=== PATIENT | male | born 1950 | race Caucasian/White ===

== ENCOUNTER 2017-01-18 13:38 | Inpatient (IN) | payer OTHER ==
[~2017-01-18] VITALS: Ht 188 cm; Wt 89.0 kg
[~2017-01-18 13:38] MED LIST: CPR500 PO; GLC500; LISI20TA; MULT-506; [UNRECOGNIZED DRUG - OTHER]
[2017-01-18] MEDS ORDERED: ALFU10TA30 PO (13:48)
[2017-01-18] MEDS ORDERED: DUTA0.5C PO (13:48)
[2017-01-18] MEDS ORDERED: LISI40TA PO (13:48)
[2017-01-18] MEDS ORDERED: GLC/500 PO (13:48)
[2017-01-18] MEDS ORDERED: AMLO-114 PO (13:48)
[2017-01-18] MEDS ORDERED: METOPROLOL TARTRATE 1 MG/ML VIAL IV STA (13:59)
[2017-01-18] MEDS ORDERED: SODIUM CHLORIDE 0.9% 1000ML 250 ML IV STA (13:59)
[2017-01-18 14:18] LABS: HEMATOCRIT 45.6 % (42-52); MEAN CELL VOLUME 88.7 fL (80-100); MEAN CORPUSCULAR HGB CONC 33.8 g/dl (32-36); MEAN PLATELET VOLUME 10.5 fL (7.4-10.4); PLATELET COUNT 277 K/uL (130-400); RED BLOOD COUNT 5.14 M/uL (4.7-6.1); WHITE BLOOD COUNT 7.73 K/uL (4.8-10.8)
--- NOTE | 2017-01-18 14:25 | DIAGNOSTIC IMAGING REPORT ---
SINGLE VIEW CHEST CLINICAL HISTORY: Atypical chest pain. FINDINGS: 2 AP, portable, upright chest radiographs are obtained. No prior studies are available for comparison at the time of dictation. The examination is degraded by portable technique and patient rotation. The heart is mildly enlarged and there is atherosclerotic calcification of the thoracic aorta. The pulmonary vascular structures noncongested. Emphysema is suggested. There is nonspecific interstitial thickening. No airspace consolidation, large pleural effusion, or pneumothorax is seen. The skeletal structures are osteopenic. Degenerative change is seen throughout the thoracic spine. IMPRESSION: Cardiomegaly and suspect emphysema. There is no acute cardiopulmonary abnormality. Electronically signed by: Ronnie Ribera M.D. 01/18/2017 2:24 PM Dictated Date/Time: 01/18/2017 2:22 PM
[2017-01-18 14:38] LABS: PROTHROMBIN TIME (PATIENT) 10.5 SECONDS (9.0-12.0)
[2017-01-18] MEDS ORDERED: NITROGLYCERIN OINT 2% 1GM PACKET EXT STA (14:39)
[2017-01-18 14:45] LABS: BUN/CREATININE RATIO 14.8 (10-20); CALCIUM 9.2 mg/dl (8.5-10.1); CREATININE 0.82 mg/dl (0.60-1.40); POTASSIUM 3.9 mmol/L (3.5-5.1)
[2017-01-18 14:54] LABS: ALB/GLOB RATIO 1.1 (0.9-2); CKMB/CK RATIO 2.5 (0-3.0)
[2017-01-18] MEDS ORDERED: METOPROLOL TARTRATE 50 MG TAB PO STA (15:29)
[2017-01-18] MEDS ORDERED: MoRPHine SULFATE 2 MG/ML CARP IV PRN (15:30)
[2017-01-18] MEDS ORDERED: ACETAMINOPHEN 325 MG TAB PO PRN (15:30)
[2017-01-18] MEDS ORDERED: ZOLPIDEM TARTRATE 5 MG TAB PO PRN (15:30)
--- NOTE | 2017-01-18 15:34 | EMERGENCY ROOM VISIT NOTE ---
History Report prepared by Adriana: Ke Carmona Under the Supervision of: Dr. Ronnie Howard M.D. First contact with patient: 13:53 Chief Complaint: CHEST PAIN Stated Complaint: CHEST PAIN AND L SHOULDER PAIN History of Present Illness The patient is a 66 year old male who presents to the Emergency Room with complaints of an episode of chest pain occurring two hours ago. He describes his pain as a "pressure" and states that it radiated into his left shoulder. He states that he was sitting in a chair when his pain began. The patient states that he experienced a "cold-sweat" after his pain resolved. He estimates that his pain lasted for about 30 minutes. He denies any SOB, or nausea. The patient has a history of diabetes, and hypertension. He has no known cardiac history. He denies any recent changes to his medications, and states that he has been taking them as usual. The patient denies any recent prolonged travel, or history of blood clots. He took 4 baby aspirin prior to arrival. Source of History: patient Onset: 2 hours ago Position: chest Symptom Intensity: 7/10 Quality: pressure Timing: other (episode) Associated Symptoms: No SOB, No nausea Note: Additional symptoms: "cold sweat" after his pain resolved and pain radiating into his left shoulder. Review of Systems See HPI for pertinent positives & negatives. A total of 10 systems reviewed and were otherwise negative. Past Medical & Surgical Medical Problems: (1) ACS (acute coronary syndrome) (2) Diabetes (3) HTN (hypertension) Family History No pertinent family history stated. Social History Smoking Status: Current Every Day Smoker Housing Status: lives with family Current/Historical Medications Scheduled Alfuzosin Hcl (Uroxatral), 10 MG PO DAILY Amlodipine (Norvasc), 10 MG PO DAILY Dutasteride (Avodart), 0.5 MG PO DAILY Lisinopril (Zestril), 40 MG PO DAILY Metformin Hcl (Glucophage), 500 MG PO BID Allergies Coded Allergies: No Known Allergies (Unverified , 01/18/17) Physical Exam Vital Signs Date Time Temp Pulse Resp B/P (MAP) Pulse Ox O2 Delivery O2 Flow Rate FiO2 01/18/17 15:12 75 18 125/91 98 Room Air 01/18/17 14:30 110 147/89 01/18/17 14:17 96 Room Air 01/18/17 13:55 105 01/18/17 13:40 36.6 129 20 159/100 96 Room Air Physical Exam GENERAL: Patient is in no acute distress. HEENT: No acute trauma, normocephalic atraumatic, mucous membranes moist, no nasal congestion, no scleral icterus. NECK: No stridor, no adenopathy, no meningismus, trachea is midline. LUNGS: Clear to auscultation bilaterally, no wheeze, no rhonchi, breath sounds equal. HEART: Without murmurs gallops or rubs, Tachycardic with a regular rhythm. ABDOMEN: Soft, nontender, bowel sounds positive, no hernias, no peritonitis. EXTREMITIES: No cyanosis or edema, full range of motion of all the joints without pain or difficulty, no signs for acute trauma. NEUROLOGIC: Oriented x 3, no acute motor or sensory deficits, no focal weakness. SKIN: No rash, no jaundice, no diaphoresis. Medical Decision & Procedures ER Provider Diagnostic Interpretation: X-ray results as stated below per interpretation by me and the radiologist: SINGLE VIEW CHEST FINDINGS: 2 AP, portable, upright chest radiographs are obtained. No prior studies are available for comparison at the time of dictation. The examination is degraded by portable technique and patient rotation. The heart is mildly enlarged and there is atherosclerotic calcification of the thoracic aorta. The pulmonary vascular structures noncongested. Emphysema is suggested. There is nonspecific interstitial thickening. No airspace consolidation, large pleural effusion, or pneumothorax is seen. The skeletal structures are osteopenic. Degenerative change is seen throughout the thoracic spine. IMPRESSION: Cardiomegaly and suspect emphysema. There is no acute cardiopulmonary abnormality. Electronically signed by: Ronnie Ribera M.D. Laboratory Results 01/18/17 13:58 01/18/17 13:58 Test 01/18/17 13:58 01/18/17 15:31 Red Blood Count 5.14 M/uL (4.7-6.1) Mean Corpuscular Volume 88.7 fL (80-100) Mean Corpuscular Hemoglobin 30.0 pg (25-34) Mean Corpuscular Hemoglobin Concent 33.8 g/dl (32-36) RDW Standard Deviation 43.2 fL (36.4-46.3) RDW Coefficient of Variation 13.2 % (11.5-14.5) Mean Platelet Volume 10.5 fL (7.4-10.4) Prothrombin Time 10.5 SECONDS (9.0-12.0) Prothromb Time International Ratio 1.0 (0.9-1.1) Activated Partial Thromboplast Time 26.1 SECONDS (21.0-31.0) Partial Thromboplastin Ratio 1.0 Anion Gap 9.0 mmol/L (3-11) Est Creatinine Clear Calc Drug Dose 105.9 ml/min Estimated GFR () 108.3 Estimated GFR (Non- 93.5 BUN/Creatinine Ratio 14.8 (10-20) Calcium Level 9.2 mg/dl (8.5-10.1) Total Bilirubin 0.7 mg/dl (0.2-1) Aspartate Amino Transf (AST/SGOT) 10 U/L (15-37) Alanine Aminotransferase (ALT/SGPT) 28 U/L (12-78) Alkaline Phosphatase 105 U/L (45-117) Total Protein 7.4 gm/dl (6.4-8.2) Albumin 3.9 gm/dl (3.4-5.0) Globulin 3.5 gm/dl (2.5-4.0) Albumin/Globulin Ratio 1.1 (0.9-2) Creatine Kinase MB Ratio (0-3.0) Laboratory results reviewed by me. Medications Administered Medications (Trade) Dose Ordered Sig/Dylan Route Start Time Stop Time Status Last Admin Dose Admin Sodium Chloride 250 ml @ 999 mls/hr Q16M STAT IV 01/18/17 13:59 01/18/17 14:14 DC 01/18/17 14:31 999 MLS/HR Metoprolol Tartrate (Lopressor Iv) 15 mg NOW STAT IV 01/18/17 13:59 01/18/17 14:01 DC 01/18/17 14:30 5 MG Nitroglycerin (Nitroglycerin 2% Oint) 1 inch NOW STAT EXT 01/18/17 14:39 01/18/17 14:40 DC 01/18/17 15:12 1 INCH ECG Indication: chest pain Rate (beats per minute): 112 Rhythm: sinus tachycardia Findings: no acute ischemic change, other (Non-specific ST change) ED Course 1354: The patient was evaluated in room A4B. A complete history and physical exam was performed. 1359: Ordered Lopressor 5 mg IV, Sodium Chloride 250 ml @ 999 mls/hr IV. 1439: Ordered Nitroglycerin 2% Oint 1 inch EXT. 1505: Reevaluated the patient. Discussed results and discharge instructions: he verbalized understanding and agreement. The patient is ready for discharge. Medical Decision The patient is a 66 year old male who presents to the ED with complaints of chest pain. Differential diagnoses considered include angina, AR, dysrhythmia, PE, aortic dissection, pneumothorax, pneumonia, and anemia. There is no leukocytosis or concerning anemia. No significant electrolyte abnormality, kidney failure or hepatitis. There is no coagulopathy. EKG shows a sinus tachycardia, no acute ischemia. Cardiac enzyme testing times one does show a mild elevation to the troponin-this is consistent with cardiac injury or strain. Chest film shows no mediastinal widening, pneumonia or pneumothorax. The patient presents hypertensive, tachycardic. He had chest pain earlier which sounded anginal. The patient was given Lopressor IV, 5 mg. He received nitroglycerin paste. As he had already taken aspirin, no further aspirin was given. The patient is in need of a hospital stay. I did talk with the patient and case management. The on-call hospitalist was consulted. Further cardiac workup is warranted. Consults Time Called: 1454 Consulting Physician: Dr. Kumar -[facility] – [place], [place] Returned Call: 1502 Discussed the patient's case. The patient will be evaluated for further management. Impression Primary Impression: Precordial chest pain Additional Impression: Elevated troponin Scribe Attestation The scribe's documentation has been prepared under my direction and personally reviewed by me in its entirety. I confirm that the note above accurately reflects all work, treatment, procedures, and medical decision making performed by me. Departure Information Dispostion Being Evaluated By Hospitalist Referrals Jr Bergeron M.D. (PCP) Patient Instructions My [facility] Problem Qualifiers
[2017-01-18] MEDS ORDERED: ONDANSETRON INJ 2 MG/ML 2 ML VIAL IV PRN (15:45)
[2017-01-18 17:05] LABS: CKMB/CK RATIO 7.3 (0-3.0)
--- NOTE | 2017-01-18 17:30 | History and Physical ---
History & Physical Date & Time of Service: Jan 18, 2017 at 17:28 Chief Complaint: Chest Pain And L Shoulder Pain Primary Care Physician: Jr Bergeron M.D. History of Present Illness Source: patient The patient is a 66-year-old male who developed precordial chest pain with radiation to left shoulder and arm about 2 hours prior to arrival. He reports that the pain lasted for about 30 minutes, and then he developed a cold sweat afterwards, but did not have shortness of breath or nausea. Patient has history of diabetes mellitus, hypertension, tobacco use, family history is a male over the age 45. He did take 4 baby aspirin prior to arrival and feels that that may have helped resolve the pain. He has not had a previous occurrence of this type pain before. He has not had a change in his usual physical activities, sleep patterns, or oral intake. Past Medical/Surgical History Medical Problems: (1) Diabetes Status: Chronic (2) HTN (hypertension) Status: Chronic Family History Noncontributory Social History Smoking Status: Current Every Day Smoker Smokeless Tobacco Use: No Alcohol Use: none Drug Use: none Occupational Status: employed Immunizations History of Influenza Vaccine: Unknown History of Tetanus Vaccine?: Unknown History of Pneumococcal: Unknown History of Hepatitis B Vaccine: Unknown Multi-Drug Resistant Organisms History of MDRO: No Allergies Coded Allergies: No Known Allergies (Unverified , 01/18/17) Home Medications Scheduled Alfuzosin Hcl (Uroxatral), 10 MG PO DAILY Amlodipine (Norvasc), 10 MG PO DAILY Dutasteride (Avodart), 0.5 MG PO DAILY Lisinopril (Zestril), 40 MG PO DAILY Metformin Hcl (Glucophage), 500 MG PO BID Review of Systems The patient denies palpitations, shortness of breath, cough, lower extremity swelling, sore throat, fevers, chills, sweats, weight change, fatigue, nausea, vomiting, abdominal pain, pelvic pain, blood in urine or stool, dysuria, urinary frequency or urgency, lightheadedness, dizziness, headache, memory loss , rash, abnormal bruising or bleeding, imbalance, focal or generalized weakness , numbness or tingling in arms or legs, arthralgias or myalgias, back or neck pain, night sweats, or allergy symptoms. The review of systems is otherwise negative other than for that already noted above, and at least 10 systems have been reviewed. Physical Exam Vital Signs Date Time Temp Pulse Resp B/P (MAP) Pulse Ox O2 Delivery O2 Flow Rate FiO2 01/18/17 15:12 75 18 125/91 98 Room Air 01/18/17 14:30 110 147/89 01/18/17 14:17 96 Room Air 01/18/17 13:55 105 01/18/17 13:40 36.6 129 20 159/100 96 Room Air The patient is awake, well-developed and adequately nourished, alert and oriented 3, normocephalic and atraumatic, lying in bed and in no acute distress. HEENT--PERRL, EOMI, mucous membranes and oropharynx normal. Neck--supple, no JVD or bruits, thyroid normal, trachea midline, no adenopathy. Heart--normal S1 and S2, no extra beats, no murmurs, rubs or gallops. Lungs--clear bilaterally, but decreased breath sounds throughout, no respiratory distress, no accessory muscle use. Abdomen--normal bowel sounds and soft, nontender and nondistended, no hernias or masses, no organomegaly. Extremities--no cyanosis, clubbing or edema. There are good distal pulses b/l. Dermatologic--normal skin turgor, normal color, warm and dry, no abnormal lymph nodes, no rash. Neurologic--cranial nerves II through XII grossly intact, motor and sensory examination normal. Rheumatologic--normal range of motion, nontender, muscles and joints. Psychiatric--normal affect. Diagnostics Laboratory Results Results Past 24 Hours Test 01/18/17 13:58 01/18/17 16:20 Range/Units White Blood Count 7.73 4.8-10.8 K/uL Red Blood Count 5.14 4.7-6.1 M/uL Hemoglobin 15.4 14.0-18.0 g/dL Hematocrit 45.6 42-52 % Mean Corpuscular Volume 88.7 80-100 fL Mean Corpuscular Hemoglobin 30.0 25-34 pg Mean Corpuscular Hemoglobin Concent 33.8 32-36 g/dl RDW Standard Deviation 43.2 36.4-46.3 fL RDW Coefficient of Variation 13.2 11.5-14.5 % Platelet Count 277 130-400 K/uL Mean Platelet Volume 10.5 7.4-10.4 fL Prothrombin Time 10.5 9.0-12.0 SECONDS Prothromb Time International Ratio 1.0 0.9-1.1 Activated Partial Thromboplast Time 26.1 21.0-31.0 SECONDS Partial Thromboplastin Ratio 1.0 Sodium Level 138 136-145 mmol/L Potassium Level 3.9 3.5-5.1 mmol/L Chloride Level 101 98-107 mmol/L Carbon Dioxide Level 28 21-32 mmol/L Anion Gap 9.0 3-11 mmol/L Blood Urea Nitrogen 12 7-18 mg/dl Creatinine 0.82 0.60-1.40 mg/dl Est Creatinine Clear Calc Drug Dose 105.9 ml/min Estimated GFR () 108.3 Estimated GFR (Non- 93.5 BUN/Creatinine Ratio 14.8 10-20 Random Glucose 247 70-99 mg/dl Calcium Level 9.2 8.5-10.1 mg/dl Total Bilirubin 0.7 0.2-1 mg/dl Aspartate Amino Transf (AST/SGOT) 10 15-37 U/L Alanine Aminotransferase (ALT/SGPT) 28 12-78 U/L Alkaline Phosphatase 105 45-117 U/L Total Creatine Kinase 52 99 39-308 U/L Creatine Kinase MB 1.3 7.2 0.5-3.6 ng/ml Creatine Kinase MB Ratio 2.5 7.3 0-3.0 Troponin I 0.312 1.920 0-0.045 ng/ml Total Protein 7.4 6.4-8.2 gm/dl Albumin 3.9 3.4-5.0 gm/dl Globulin 3.5 2.5-4.0 gm/dl Albumin/Globulin Ratio 1.1 0.9-2 Diagnostic Radiology Patient Name: BARBARA WISE Unit Number: [id number] Dictated: 01/18/171421 Transcribed: 01/18/171421 EV Printed Date/Time: [~ rep prt dt]/[~ rep prt tm] [~ rep ct labl] - [~ rep ct ivnm] [facility] [place] [address] Dictated: 01/18/171421 Transcribed: 01/18/171421 EV Printed Date/Time: [~ rep prt dt]/[~ rep prt tm] [~ rep ct labl] - [~ rep ct ivnm] SINGLE VIEW CHEST CLINICAL HISTORY: Atypical chest pain. FINDINGS: 2 AP, portable, upright chest radiographs are obtained. No prior studies are available for comparison at the time of dictation. The examination is degraded by portable technique and patient rotation. The heart is mildly enlarged and there is atherosclerotic calcification of the thoracic aorta. The pulmonary vascular structures noncongested. Emphysema is suggested. There is nonspecific interstitial thickening. No airspace consolidation, large pleural effusion, or pneumothorax is seen. The skeletal structures are osteopenic. Degenerative change is seen throughout the thoracic spine. IMPRESSION: Cardiomegaly and suspect emphysema. There is no acute cardiopulmonary abnormality. Electronically signed by: Ronnie Ribera M.D. 01/18/2017 2:24 PM Dictated Date/Time: 01/18/2017 2:22 PM The status of this report is Signed. Draft = Not yet reviewed or approved by Radiologist. Signed = Reviewed and approved by Radiologist. <AttendingPhy></AttendingPhy> <FamilyPhy>Jr Bergeron M.D.</FamilyPhy> < PrimaryPhy>Jr Bergeron M.D.</PrimaryPhy> <UnitNumber>[id number]</UnitNumber > <VisitNumber>[id number]</VisitNumber> <PatientName>BARBARA WISE</ PatientName> <DateOfBirth>1950</DateOfBirth> <Location>[facility]</Location> < ServiceDate>01/18/17</ServiceDate> <MNE>ESINDI</MNE> <OrderingPhy>Ronnie Howard M.D.</OrderingPhy> <OrderingPhyMNE>f rep ord dr mae</OrderingPhyMNE> < DictatingPhyMNE>f rep dict dr mae</DictatingPhyMNE> <CCListMNE>f rep ct jourdane</ CCListMNE> <AdmittingPhyMNE>f pt admit dr mae</AdmittingPhyMNE> <AttendingPhyMNE >f pt attend dr mae</AttendingPhyMNE> <ConsultingPhyMNE>f pt consult dr mae</ConsultingPhyMNE> <FamilyPhyMNE>f pt fam dr mae</FamilyPhyMNE> <OtherPhyMNE>f pt other dr mae</OtherPhyMNE> < PrimaryPhyMNE>f pt prim care dr mae</PrimaryPhyMNE> <ReferringPhyMNE>f pt referring dr mae</ReferringPhyMNE> EKG EKG shows sinus tachycardia 112 bpm, with nonspecific ST changes. Impression Assessment and Plan Acute coronary syndrome with elevated troponin and nonspecific EKG changes-- patient's multiple risk factors including hypertension, diabetes mellitus, tobacco use, male greater than 45. He'll be admitted to the telemetry unit for serial cardiac enzymes, cardiac rhythm monitoring and a 2-D echocardiogram with Dopplers. We'll start metoprolol tartrate 50 mg by mouth now and 50 mg by mouth twice a day, aspirin 81 mg by mouth every morning,when his speech or chest wall every 6 hours, and heparin drip IV standard dose without. Hold amlodipine 10 mg by mouth daily and continue lisinopril 40 mg by mouth daily. We'll consult cardiology. Diabetes mellitus--hold metformin 500 mg by mouth twice a day. Place on Accu- Cheks before meals and at bedtime with NovoLog coverage per scale. BPH--hold the alpha-sarmad Uroxatral in the event that nitroglycerin needs be used, and continue dutasteride 0.5 mg by mouth daily. Level of Care Telemetry Advanced Directives Existing Living Will: No Existing Power of Wharf Laborer: No Existing Health Care Proxy: No Resuscitation Status FULL RESUSCITATION VTE Prophylaxis VTE Risk Assessment Done? Y/N: Yes Risk Level: Moderate Given or contraindicated: Other Anticoagulation (IV heparin)
[2017-01-18] MEDS ORDERED: GLUCOSE 40% GEL 15 GM TUBE PO PRN (17:45)
[2017-01-18] MEDS ORDERED: DEXTROSE 50% 50 ML SYR IV PRN (17:45)
[2017-01-18] MEDS ORDERED: GLUCOSE 10 TABS/TUBE PO PRN (17:45)
[2017-01-18] MEDS ORDERED: GLUCAGON FOR INJ 1 MG VIAL SQ PRN (17:45)
[2017-01-18 17:55] VITALS: O2SAT 98; Ht 188 cm; Wt 89.0 kg
[2017-01-18 18:15] VITALS: BP 165/87; PULSE 84; TEMP 36.6; O2SAT 95
[2017-01-18 19:25] VITALS: BP 147/79; PULSE 93; TEMP 36.7; O2SAT 96
[2017-01-18] MEDS: NSS + 20MEQ KCL 1000ML 1,000 ML IV SCH (19:26)
[2017-01-18 20:00] VITALS: O2SAT 95
[2017-01-18] MEDS: HEPARIN 25,000 UNIT/500ML D5W 500 ML IV PRN (20:19)
[2017-01-18 21:25] VITALS: BP 132/81; PULSE 63
[2017-01-18] MEDS: INSULIN ASPART 100 UNITS/ML 3 ML PEN SC SCH (21:28)
[2017-01-18] MEDS: METOPROLOL TARTRATE 50 MG TAB PO SCH (21:28)
[2017-01-18] MEDS: NITROGLYCERIN OINT 2% 1GM PACKET EXT SCH (21:34)
[2017-01-18] MEDS: AVODART-ORDER AWAITING ACTION SCH (22:46)
[2017-01-18 23:20] VITALS: BP 142/72; PULSE 72; TEMP 36.8; O2SAT 98
[2017-01-18 23:52] LABS: CKMB/CK RATIO 9.7 (0-3.0)
[2017-01-19] VITALS (12 sets, daily range): BP systolic 123–144; BP diastolic 66–82; PULSE 54–76; TEMP 36.4–36.8; O2SAT 94–98
[2017-01-19 02:24] LABS: PARTIAL THROMBOPLASTIN RATIO 1.5
[2017-01-19] MEDS ORDERED: HEPARIN IV BOLUS 7,000 UNIT in SYRINGE 0 ML IV ONE (02:45)
[2017-01-19] MEDS: HEPARIN 25,000 UNIT/500ML D5W 500 ML IV PRN ×3 (02:47→12:35)
[2017-01-19] MEDS: NITROGLYCERIN OINT 2% 1GM PACKET EXT SCH ×4 (03:49→21:30)
[2017-01-19] MEDS: NSS + 20MEQ KCL 1000ML 1,000 ML IV SCH ×2 (03:50→16:11)
[2017-01-19] MEDS: AVODART-ORDER AWAITING ACTION SCH ×3 (07:16→22:41)
[2017-01-19] MEDS: ASPIRIN 81 MG CHEW PO SCH (07:38)
[2017-01-19] MEDS: LISINOPRIL 40 MG TAB PO SCH (07:39)
[2017-01-19] MEDS: INSULIN ASPART 100 UNITS/ML 3 ML PEN SC SCH ×4 (08:29→21:32)
[2017-01-19] MEDS: METOPROLOL TARTRATE 50 MG TAB PO SCH (08:36)
[2017-01-19 08:44] LABS: BASO % 0.4 %; BASO ABS # 0.03 K/uL (0-0.2); COMPLETE YES; EOS % 1.6 %; HEMATOCRIT 41.9 % (42-52); IG% 0.2 %; LYMPH % 20.4 %; LYMPH ABS # 1.74 K/uL (1.2-3.4); MEAN CELL VOLUME 88.2 fL (80-100); MEAN CORPUSCULAR HEMOGLOBIN 28.8 pg (25-34); MEAN CORPUSCULAR HGB CONC 32.7 g/dl (32-36); MEAN PLATELET VOLUME 10.2 fL (7.4-10.4); NEUT % 70.4 %; PLATELET COUNT 275 K/uL (130-400); RED BLOOD COUNT 4.75 M/uL (4.7-6.1); WHITE BLOOD COUNT 8.55 K/uL (4.8-10.8)
[2017-01-19 09:02] LABS: BUN/CREATININE RATIO 16.5 (10-20); CREATININE 0.82 mg/dl (0.60-1.40)
[2017-01-19 09:06] LABS: PARTIAL THROMBOPLASTIN RATIO 3.2
[2017-01-19 09:12] LABS: CKMB/CK RATIO 8.5 (0-3.0)
[2017-01-19] MEDS ORDERED: PERFLUTREN LIPID MICROSPHERE (DEFINITY) IV ONE (09:47)
--- NOTE | 2017-01-19 11:04 | Cardiology Consultation ---
Cardiology Consultation Date of Consultation: Jan 19, 2017. Requesting Physician: Dr. Kumar Attending Physician: Dr. Nevarez Reason for Consultation: Acute Coronary Syndrome/NSTEMI Pt evaluation today including: conversation w/ patient, physical exam, chart review, lab review, review of studies, review of inpatient medication list, conversation w/ attending (Dr. Nevarez notified of recommended procedure) History of Present Illness Mr. Meyer is a pleasant 66-year-old gentleman with a history significant for diabetes, tobacco abuse, and hypertension. He was admitted to [facility] on 2016 with angina, concerning for acute coronary syndrome. At approximately noontime yesterday, he developed left-sided chest discomfort described as a tightness which radiated to his left arm. He had diaphoresis but no shortness of breath. This occurred while sitting. It lasted for approximately 45 minutes before spontaneously resolving. He did take aspirin 81 mg x4. He did not require nitroglycerin by the timing of to the emergency department. Initial ECG was abnormal with nonspecific T-wave abnormality and very slight ST elevation is in the anterolateral leads cath. Repeat ECG overnight demonstrated sinus bradycardia with anterior T-wave inversion. His initial troponin was 0.312 and it continued to climb overnight. He has not had any further chest discomfort. He is not sure if he had any exertional chest discomfort over the preceding days or weeks. He does not complain and dyspnea with exertion. He denies syncope, near-syncope, palpitations, orthopnea, PND, or edema. He denies bleeding such as melena, hematochezia, or hematuria. Hospitalist service had placed him on a heparin drip. He is taking aspirin. He did eat a small breakfast first thing this morning but was done by 8:00 AM. Review of systems: As above in review of systems otherwise unremarkable. Past Medical/Surgical History (1) BPH (benign prostatic hyperplasia) (2) Diabetes (3) HTN (hypertension) Family History No known premature CAD. Social History Smoking Status: Current Every Day Smoker History of Alcohol Use: No Smokes 1 pack per day but has smoked as much as 2 packs per day. He estimates smoking for at least 30-40 years. No alcohol or drugs. He is not . 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 Her name is Elisabeth Vivar. No children. He enjoys working a [employer] shop for fun. He is unaccompanied today. All Other Systems: Reviewed and Negative Allergies Coded Allergies: No Known Allergies (Unverified , 01/18/17) Medications Current Inpatient Medications Medications (Trade) Dose Ordered Sig/Dylan Route Start Time Stop Time Status Last Admin Dose Admin Acetaminophen (Tylenol Tab) 650 mg Q4H PRN PO 01/18/17 15:30 02/17/17 15:29 Zolpidem Tartrate (Ambien Tab) 5 mg HSZ PRN PO 01/18/17 15:30 02/17/17 15:29 Nitroglycerin (Nitroglycerin 2% Oint) 1 inch Q6H EXT 01/18/17 22:00 02/17/17 21:59 01/19/17 03:49 1 INCH Morphine Sulfate (MoRPHine SULFATE INJ) 2 mg Q30M PRN IV 01/18/17 15:30 02/01/17 15:29 Lisinopril (Zestril Tab) 40 mg DAILY PO 01/19/17 09:00 02/18/17 08:59 01/19/17 07:39 40 MG Miscellaneous Information (Order Awaiting Action) 1 ea QS N/A 01/19/17 00:00 02/18/17 00:00 Metoprolol Tartrate (Lopressor Tab) 50 mg BID PO 01/18/17 21:00 02/17/17 20:59 01/19/17 08:36 50 MG Aspirin (Aspirin Chew) 81 mg QAM PO 01/19/17 09:00 02/18/17 08:59 01/19/17 07:38 81 MG Ondansetron HCl (Zofran Inj) 4 mg Q6H PRN IV 01/18/17 15:45 02/17/17 15:44 Potassium Chloride/Sodium Chloride 1,000 ml @ 100 mls/hr Q10H IV 01/18/17 18:45 02/17/17 15:30 01/19/17 03:50 100 MLS/HR Heparin Sodium/ Dextrose 500 ml @ 34 mls/hr [id number] PRN IV 01/18/17 16:30 02/17/17 16:29 01/19/17 09:28 37 MLS/HR Insulin Aspart (novoLOG ASPART) SLIDING SCALE If C... ACHS SC 01/18/17 21:00 02/17/17 20:59 01/19/17 08:29 7 UNITS Glucose (Glucose 40% Gel) UD PRN PO 01/18/17 17:45 02/17/17 17:44 Glucose (Glucose Chew Tab) 1 tabs UD PRN PO 01/18/17 17:45 02/17/17 17:44 Dextrose (Dextrose 50% 50ML Syringe) 50 ml UD PRN IV 01/18/17 17:45 02/17/17 17:44 Glucagon (Glucagon Inj) 1 mg UD PRN SQ 01/18/17 17:45 02/17/17 17:44 Physical Exam Vital Signs Past 12 Hours Date Time Temp Pulse Resp B/P (MAP) Pulse Ox O2 Delivery O2 Flow Rate FiO2 01/19/17 08:00 Room Air 01/19/17 07:27 36.4 66 17 141/82 (101) 94 Room Air 01/19/17 04:06 36.8 57 18 134/72 (92) 94 Room Air 01/19/17 04:00 Room Air 01/19/17 00:00 Room Air 01/18/17 23:20 36.8 72 18 142/72 (95) 98 Room Air Gen.: No acute distress. Alert and oriented. HEENT: Anicteric sclera. Neck: No JVD. No bruits. Normal carotid upstrokes bilaterally. Cardiac: PMI was nondisplaced. No ventricular heave. Regular rate and rhythm. Normal S1-S2. No murmurs, rubs, or gallops. Pulmonary: Clear to auscultation bilaterally without wheezes, rales, or rhonchi. Abdomen: Soft, nontender, nondistended, with normoactive bowel sounds. No bruits noted. Extremities: 2+ radial pulses bilaterally; Allens's ok. 2+ femoral pulses bilaterally; no bruit. 2+ posterior tibialis pulses bilaterally. No edema or cyanosis. Psychiatric: Affect appears appropriate. Data Laboratory Results: Last 24 Hours Test 01/18/17 13:58 01/18/17 16:20 01/18/17 20:15 01/18/17 23:10 White Blood Count 7.73 K/uL Red Blood Count 5.14 M/uL Hemoglobin 15.4 g/dL Hematocrit 45.6 % Mean Corpuscular Volume 88.7 fL Mean Corpuscular Hemoglobin 30.0 pg Mean Corpuscular Hemoglobin Concent 33.8 g/dl RDW Standard Deviation 43.2 fL RDW Coefficient of Variation 13.2 % Platelet Count 277 K/uL Mean Platelet Volume 10.5 fL Prothrombin Time 10.5 SECONDS Prothromb Time International Ratio 1.0 Activated Partial Thromboplast Time 26.1 SECONDS Partial Thromboplastin Ratio 1.0 Sodium Level 138 mmol/L Potassium Level 3.9 mmol/L Chloride Level 101 mmol/L Carbon Dioxide Level 28 mmol/L Anion Gap 9.0 mmol/L Blood Urea Nitrogen 12 mg/dl Creatinine 0.82 mg/dl Est Creatinine Clear Calc Drug Dose 105.9 ml/min Estimated GFR () 108.3 Estimated GFR (Non- 93.5 BUN/Creatinine Ratio 14.8 Random Glucose 247 mg/dl Calcium Level 9.2 mg/dl Total Bilirubin 0.7 mg/dl Aspartate Amino Transf (AST/SGOT) 10 U/L Alanine Aminotransferase (ALT/SGPT) 28 U/L Alkaline Phosphatase 105 U/L Total Creatine Kinase 52 U/L 99 U/L 264 U/L Creatine Kinase MB 1.3 ng/ml 7.2 ng/ml 25.6 ng/ml Creatine Kinase MB Ratio 2.5 7.3 9.7 Troponin I 0.312 ng/ml 1.920 ng/ml 19.600 ng/ml Total Protein 7.4 gm/dl Albumin 3.9 gm/dl Globulin 3.5 gm/dl Albumin/Globulin Ratio 1.1 Bedside Glucose 263 mg/dl Test 01/19/17 02:04 01/19/17 07:41 01/19/17 08:31 01/19/17 10:31 Activated Partial Thromboplast Time 38.6 SECONDS 82.8 SECONDS Partial Thromboplastin Ratio 1.5 3.2 Bedside Glucose 188 mg/dl White Blood Count 8.55 K/uL Red Blood Count 4.75 M/uL Hemoglobin 13.7 g/dL Hematocrit 41.9 % Mean Corpuscular Volume 88.2 fL Mean Corpuscular Hemoglobin 28.8 pg Mean Corpuscular Hemoglobin Concent 32.7 g/dl Platelet Count 275 K/uL Mean Platelet Volume 10.2 fL Neutrophils (%) (Auto) 70.4 % Lymphocytes (%) (Auto) 20.4 % Monocytes (%) (Auto) 7.0 % Eosinophils (%) (Auto) 1.6 % Basophils (%) (Auto) 0.4 % Neutrophils # (Auto) 6.02 K/uL Lymphocytes # (Auto) 1.74 K/uL Monocytes # (Auto) 0.60 K/uL Eosinophils # (Auto) 0.14 K/uL Basophils # (Auto) 0.03 K/uL RDW Standard Deviation 43.7 fL RDW Coefficient of Variation 13.4 % Immature Granulocyte % (Auto) 0.2 % Immature Granulocyte # (Auto) 0.02 K/uL Prothrombin Time 11.0 SECONDS Prothromb Time International Ratio 1.0 Sodium Level 140 mmol/L Potassium Level 4.0 mmol/L Chloride Level 106 mmol/L Carbon Dioxide Level 26 mmol/L Anion Gap 8.0 mmol/L Blood Urea Nitrogen 14 mg/dl Creatinine 0.82 mg/dl Est Creatinine Clear Calc Drug Dose 105.9 ml/min Estimated GFR () 108.3 Estimated GFR (Non- 93.5 BUN/Creatinine Ratio 16.5 Random Glucose 246 mg/dl Calcium Level 9.0 mg/dl Magnesium Level 2.0 mg/dl Total Bilirubin 0.8 mg/dl Direct Bilirubin 0.3 mg/dl Aspartate Amino Transf (AST/SGOT) 49 U/L Alanine Aminotransferase (ALT/SGPT) 27 U/L Alkaline Phosphatase 91 U/L Total Creatine Kinase 224 U/L Creatine Kinase MB 19.1 ng/ml Creatine Kinase MB Ratio 8.5 Troponin I 25.800 ng/ml Total Protein 6.7 gm/dl Albumin 3.4 gm/dl Imaging: Chest x-ray images personally reviewed. No obvious infiltrate. Radiology has interpreted as possible emphysema without acute cardiopulmonary abnormality. ECGs personally reviewed as noted above and also: ECG 01/19/17 7:10 AM: NSR at 66 bpm. Anterior T wave inversion. Inferior T Wave inversion. Telemetry reviewed: (personally reviewed) sinus rhythm with up to 7 bt run of VT. Echo preliminary review 01/19/17 (images personally reviewed): LV systolic function overall appears low normal on limited review. Apical wall motion abnormality. Full report to follow after formally reviewed. Assessment & Plan ASSESSMENT/PLAN: 1. NSTEMI: No further angina. Troponins continue to rise. Follow troponin levels until peak. Echocardiogram formal review is pending. Continue aspirin and heparin drip. Continue beta-sarmad as tolerated. Continue OSMEL-inhibitor. High-intensity statin therapy is indicated and therefore will be ordered at this time. Atorvastatin 80 mg once daily. Recommend cardiac catheterization. Coronary angiography was discussed with him in detail. He was made aware that CT surgery is not available at this facility. He initially wanted to think it over, after discussing risks and benefits, and has since verbally consented to undergo the procedure. He will be done this afternoon given the fact that he did eat a small breakfast early this morning. 2. Hypertension: Blood pressure has been mildly elevated or normotensive. Metoprolol has been started by the hospitalist service. 3. Tobacco abuse: Recommended that he stop smoking. 4. Paroxysmal Ventricular Tachycardia: Likely due to ischemic heart disease in the setting of NSTEMI. Continue betablocker. Monitor electrolytes. 5. Disposition: Cardiology will continue to follow. Coronary angiography planned for this afternoon. Can be done emergently sooner, if he has recurrent symptoms not amenable to medical therapy. Highly complex medical issues. Thank you for allowing me to participate in the care of Mr. Meyer. Please call for any other questions or concerns. Sincerely, Joni Jean M.D.
[2017-01-19 11:34] LABS: CHOLESTEROL/HDL RATIO 3.3
--- NOTE | 2017-01-19 12:16 | ECHOCARDIOGRAM REPORT ---
*NOTICE TO RECEIVING [employer] AGENCY This information is strictly Confidential and protected under [place] law. [place] law prohibits you from making any further disclosure of this information unless further disclosure is expressly permitted by the written consent of the person to whom it pertains or is authorized by law. A general authorization for the release of medical or other information is not sufficient for this purpose. Hospital accepts no responsibility if the information is made available to any other person, INCLUDING THE PATIENT. Interpretation Summary * Name: BARBARA WISE Study Date: 01/19/2017 09:12 AM BP: 141/82 mmHg * Patient Location: [facility]\S\N287\S\2 HR: 66 * : 1950 (M/d/yyyy) Gender: Male Height: 74 in * Age: 66 yrs Ethnicity: CA Weight: 191 lb * Ordering Physician: Carlos Jean * Referring Physician: Self, Referred * Performed By: Selena Borden RDCS * * Reason For Study: AMI * BSA: 2.1 m2 * -- Conclusions -- * 1. Mildly dilated left ventricular size with mildly reduced to low-normal systolic function. EF 50%. Akinetic apex. No left ventricular hypertrophy. Type 1 diastolic dysfunction. No apical thrombus. * 2. The left atrium is mildly dilated. * 3. No significant valvular abnormalities. * 4. No prior study available for comparison. Procedure Details * A contrast injection of Definity was performed to improve assessment of LV function. * Contrast was injected into an intravenous site in the right arm. * One vial of Definity ultrasound contrast was diluted in normal saline to a total volume of 10 ml. A total of '2' ml of solution was administered during imaging. * Lot # [id number] of Definity utilized for procedure. * Expiration date FEB 27. * The attending nurse who injected the contrast agent was COURTNEY HENDERSON RN. Left Ventricle * Mildly dilated left ventricular size with mildly reduced to low-normal systolic function. EF 50%. Akinetic apex. No left ventricular hypertrophy. Type 1 diastolic dysfunction. No apical thrombus. Right Ventricle * The right ventricle is normal in size and function. * The right ventricular systolic function is normal as assessed by tricuspid annular plane systolic excursion (TAPSE) (normal >1.5 cm). Atria * The left atrium is mildly dilated. * Right atrial size is normal. * There is no evidence of atrial septal defect, but resolution does not allow assessment for a patent foramen ovale. Mitral Valve * The mitral valve is normal in structure and function. * There is no mitral valve stenosis. * There is trace mitral regurgitation. Tricuspid Valve * The tricuspid valve is not well visualized, but is grossly normal. * There is no tricuspid stenosis. * Significant tricuspid regurgitation is absent. Aortic Valve * The aortic valve is normal in structure and function. * No hemodynamically significant valvular aortic stenosis. * No aortic regurgitation is present. Pulmonic Valve * The pulmonary valve is inadequately visualized, but the Doppler data is adequate for interpretation. * There is no pulmonic valvular stenosis. * There is no significant pulmonary regurgitation. Great Vessels * The aortic root is normal size. Pericardium/Pleural * There is no pericardial effusion. Great Vessels * Normal inferior vena cava size and collapsability with sniff indicates a normal right atrial pressure of 3 mmHg MMode 2D Measurements and Calculations IVSd 1.0 cm IVSs 1.9 cm LVIDd 5.9 cm LVIDs 4.4 cm LVPWd 1.1 cm LVPWs 1.9 cm IVS/LVPW 0.97 FS 24.3 % EDV(Teich) 170.7 ml ESV(Teich) 89.5 ml EF(Teich) 47.6 % EDV(cubed) 201.5 ml ESV(cubed) 87.4 ml EF(cubed) 56.6 % % IVS thick 78.7 % % LVPW thick 78.6 % LV mass(C)d 255.9 grams LV mass(C)dI 120.0 grams/m\S\2 LV mass(C)s 390.5 grams LV mass(C)sI 183.1 grams/m\S\2 SV(Teich) 81.2 ml SI(Teich) 38.1 ml/m\S\2 SV(cubed) 114.0 ml SI(cubed) 53.5 ml/m\S\2 Ao root diam 3.8 cm Ao root area 11.2 cm\S\2 LA dimension 3.9 cm LA/Ao 1.0 LVAd ap4 48.1 cm\S\2 LVLd ap4 10.0 cm EDV(MOD-sp4) 189.9 ml EDV(sp4-el) 197.1 ml LVAs ap4 31.8 cm\S\2 LVLs ap4 8.7 cm ESV(MOD-sp4) 96.0 ml ESV(sp4-el) 98.3 ml EF(MOD-sp4) 49.5 % EF(sp4-el) 50.1 % LVAd ap2 46.9 cm\S\2 LVLd ap2 9.9 cm EDV(MOD-sp2) 189.6 ml EDV(sp2-el) 189.3 ml LVAs ap2 32.0 cm\S\2 LVLs ap2 9.4 cm ESV(MOD-sp2) 94.1 ml ESV(sp2-el) 93.2 ml EF(MOD-sp2) 50.4 % EF(sp2-el) 50.7 % LVLd %diff -9.52 % EDV(MOD-bp) 204.7 ml LVLs %diff 13.1 % ESV(MOD-bp) 93.0 ml EF(MOD-bp) 54.6 % SV(MOD-sp4) 93.9 ml SI(MOD-sp4) 44.0 ml/m\S\2 SV(MOD-sp2) 95.5 ml SI(MOD-sp2) 44.8 ml/m\S\2 SV(MOD-bp) 111.8 ml SI(MOD-bp) 52.4 ml/m\S\2 SV(sp4-el) 98.9 ml SI(sp4-el) 46.3 ml/m\S\2 SV(sp2-el) 96.0 ml SI(sp2-el) 45.0 ml/m\S\2 Doppler Measurements and Calculations MV E max dorota 63.7 cm/sec MV A max dorota 81.2 cm/sec MV E/A 0.78 MV dec time 0.28 sec Ao V2 max 128.1 cm/sec Ao max PG 6.6 mmHg Ao max PG (full) 3.6 mmHg LV V1 max PG 2.9 mmHg LV V1 max 85.7 cm/sec
[2017-01-19] MEDS ORDERED: NiCARDipine HCL INJ 2.5 MG/ML 10 ML AMP ONE (13:25)
[2017-01-19] MEDS ORDERED: HEPARIN SOD (PORCINE) 1000 UNIT/ML 10 ML VIAL ONE ×2 (13:25→14:42)
[2017-01-19] MEDS ORDERED: FENTANYL CITRATE INJ 50 MCG/1 ML 2 ML VIAL ONE (13:26)
[2017-01-19] MEDS ORDERED: MIDAZOLAM HCL 1 MG/ML 2ML VIAL ONE (13:26)
[2017-01-19] MEDS ORDERED: NITROGLYCERIN/D5W 100MCG/ML 20ML SYR ONE (13:26)
--- NOTE | 2017-01-19 13:55 | Procedure Note ---
Pre-Mod Sedation Assessment General Date of Moderate Sedation: Jan 19, 2017. Vital Signs: Vital Signs Past 12 Hours Date Time Temp Pulse Resp B/P (MAP) Pulse Ox O2 Delivery O2 Flow Rate FiO2 01/19/17 12:25 36.7 76 16 123/66 (85) 96 01/19/17 12:06 36.4 66 17 141/82 94 Room Air 01/19/17 08:00 Room Air 01/19/17 07:27 36.4 66 17 141/82 (101) 94 Room Air 01/19/17 04:06 36.8 57 18 134/72 (92) 94 Room Air 01/19/17 04:00 Room Air Review Cardiovascular: regular rate, rhythm, no murmur Abdomen: soft Lungs: lungs clear Pre-Sedation Airway Assessment Oral Cavity: WNL Short Thick Neck: No Hx of Sleep Apnea: No Smoking Status: Current Every Day Smoker Procedure Planning Contraindications-for Mod Sed: None Yes Notes The planned sedation has been discussed with the patient and consent obtained. I have identified the patient, determined the appropriateness of sedation and have assessed the patient immediately prior to the procedure. All medicine(s) and interventions are by my order.
[2017-01-19] MEDS ORDERED: ADENOSINE IV SOLN 3 MG/ML 20 ML VIAL ONE (14:27)
--- NOTE | 2017-01-19 14:50 | Procedure Note ---
Post-Mod Sedation Assessment General Date of Moderate Sedation Jan 19, 2017. Vital Signs: Vital Signs Past 12 Hours Date Time Temp Pulse Resp B/P (MAP) Pulse Ox O2 Delivery O2 Flow Rate FiO2 01/19/17 12:25 36.7 76 16 123/66 (85) 96 01/19/17 12:06 36.4 66 17 141/82 94 Room Air 01/19/17 08:00 Room Air 01/19/17 07:27 36.4 66 17 141/82 (101) 94 Room Air 01/19/17 04:06 36.8 57 18 134/72 (92) 94 Room Air 01/19/17 04:00 Room Air Review - Discharge Criteria Vital Signs Stable: Yes Alert/Oriented/Conversant: Yes Returned to Baseline Mental St: Yes Nausea Absent/Minimal: Yes Pain/Discomfort/Absent/Minimal: Yes Normal/Baseline Respirations: Yes Active Bleeding?: No (undergoing FFR with Dr. Crowell)
--- NOTE | 2017-01-19 15:20 | Cardiac Catheterization ---
Procedure Note Procedure Date Jan 19, 2017. Pre-Procedure Diagnosis Non STEMI AUC Score 9 Post-Procedure Diagnosis Moderate CAD (Intermediate proximal LAD stenosis), Elevated Intracardiac Pressures Procedure(s) Performed Coronary Angiography, Left Heart Cath Property Man Dr. Jean Cna Hha(s) Caty Estimated Blood Loss < 20 ml Medication(s) Fentanyl, Heparin, Nicardipine, Versed, Lidocaine 1% Summary of Findings Coronary angiography: 1. Left main coronary artery: The LMCA is short but large in caliber. No significant CAD. 2. Left anterior descending: The LAD is a large caliber vessel that extends to the apex. Proximal LAD 50-70%. Mid LAD 30%. Small caliber D1. Very large caliber D2 with lateral branch, without significant CAD. 3. Circumflex: The circumflex is a large caliber vessel. Proximal circumflex 20%. Mid circumflex luminal irregularities. The distal circumflex continues as a small-medium caliber AV groove vessel. Large OM1 without significant CAD. Large OM2 with proximal 30% and mid 30% stenoses. 4. Right coronary artery: The RCA is large and dominant. Proximal RCA 50%. PL and PDA without significant CAD. 5. Ramus intermedius: The ramus is small to medium in caliber. No significant CAD. Left heart catheterization: 1. No significant aortic stenosis. 2. Left ventriculography was not performed. Echocardiogram was done earlier today. 3. Mildly elevated LVEDP; 17 mmHg. Sedation start time: 2:01 p.m. Sedation end time: 2:16 p.m. Impression: 1. Moderate to severe proximal LAD CAD. 2. Mild and moderate nonobstructive CAD involving the proximal RCA, OM 2, circumflex, and mid LAD. 3. No aortic stenosis. 4. Mildly elevated LVEDP. Plan: 1. roughener, Dr. Crowell, will further evaluate proximal LAD with FFR. 2. Continue medical therapy for CAD and NSTEMI. Hemodynamics Rest Ao: 111/55 Final Ao: 115/53 LV: 116/5. LVEDP 17 mmHg Recommendations Medical therapy and/or Counseling, management recommendations (Interventional cardiology to further evaluate proximal LAD (planning FFR).) Specimens None Radiation Exposure (mGy) 1130 mGy. Fluoro time 3.6 min. Contrast (mls) 75 ml Procedural Complication(s) None Disposition Manager Credit Holding/Recovery (Remaining in laborer cement gun placing for further evaluation of proximal LAD.) ACC Data Cardiac Status Clinical evaluation leading to the procedure CAD Presntation: Non STEMI Anginal Classification: CCS IV Heart Failure: No Cardiogenic Shock w/in 24Hrs: No Cardiac Arrest w/in 24Hrs: No Imaging studies past 6 months: Yes (echo with LAD wall motion abnormality) Stress studies past 6 months: No Standard Exercise Stress Test: No Stress Echocardiogram: No Stress Testing w/SPECT MPI: No Cardiac CTA: No Coronary Anatomy Dominant: Right Left Main (% Stenosis): Normal LAD (% Stenosis): Proximal (50-70%), Mid (30%) D1 (% Stenosis): Normal D2 (% Stenosis): Normal Circumflex (% Stenosis): Proximal (20%) OM1 (% Stenosis): Normal OM2 (% Stenosis): Proximal (30%), Mid (30%) RCA (% Stenosis): Proximal (50%) R PDA (% Stenosis): Normal R PL1 (% Stenosis): Normal Ramus (% Stenosis): Normal Left Ventricular Angiography EF (%): n/a Diagnostic Physician's Name: Carlos Jean MD Closure Device Percutaneous Entry Location: Radial Closure Device: Radial Band Recommendations: management recommendations (Interventional cardiology to further evaluate Proximal LAD stenosis)
[2017-01-19] MEDS ORDERED: CLOPIDOGREL BISULFATE 300 MG TAB PO ONE (15:29)
--- NOTE | 2017-01-19 15:53 | Procedure Note ---
Post-Mod Sedation Assessment General Date of Moderate Sedation Jan 19, 2017. Vital Signs: Vital Signs Past 12 Hours Date Time Temp Pulse Resp B/P (MAP) Pulse Ox O2 Delivery O2 Flow Rate FiO2 01/19/17 15:41 70 16 122/60 (80) 99 Room Air 01/19/17 15:27 66 16 126/61 (82) 99 Room Air 01/19/17 12:25 36.7 76 16 123/66 (85) 96 01/19/17 12:06 36.4 66 17 141/82 94 Room Air 01/19/17 12:00 Room Air 01/19/17 08:00 Room Air 01/19/17 07:27 36.4 66 17 141/82 (101) 94 Room Air 01/19/17 04:06 36.8 57 18 134/72 (92) 94 Room Air 01/19/17 04:00 Room Air Review - Discharge Criteria Vital Signs Stable: Yes Alert/Oriented/Conversant: Yes Returned to Baseline Mental St: Yes Nausea Absent/Minimal: Yes Pain/Discomfort/Absent/Minimal: Yes Normal/Baseline Respirations: Yes Active Bleeding?: No (undergoing FFR with Dr. Crowell) Prescriptions Given: None Specific Proced. D/C Criteria Distal Pulses Present (Cardiac: Yes Groin site assessed-Card Cath: N/A Voided Prior To Discharge: N/A Discharged Patients Adult Escort/Transportation: N/A
[2017-01-19] MEDS ORDERED: ATROPINE SULFATE 0.1 MG/ML 5ML SYR IV PRN (16:00)
[2017-01-19] MEDS ORDERED: ACETAMINOPHEN 325 MG TAB PO PRN (16:00)
[2017-01-19] MEDS ORDERED: ONDANSETRON INJ 2 MG/ML 2 ML VIAL IV PRN (16:00)
[2017-01-19] MEDS ORDERED: EPTIFIBATIDE BOLUS / DRIP IV ONE (16:00)
--- NOTE | 2017-01-19 16:02 | Cardiac Catheterization ---
Procedure Note Procedure Date Jan 19, 2017. Pre-Procedure Diagnosis Non STEMI, CAD AUC Score 8 Post-Procedure Diagnosis Successful PCI, Cardiothoracic Finding (FFR of the proximal LAD stenosis was significant ( 0.78 )) Procedure(s) Performed Coronary Angiography, Drug Eluting Stent, Fractional Flow [employer] Accountant Dr. Crowell Web Manager(s) LARS Patiño, Chelsea Tellez, LARS Estimated Blood Loss 25 ml Medication(s) Clopidogrel (600 mg PO post PCI), Heparin, Integrilin, Nicardipine (intra arterial and intracoronary), Adenosine Summary of Findings Clinical indications: Non ST elevation myocardial infarction. Moderate proximal LAD stenosis on diagnostic angiography. FFR of the LAD stenosis was 0.78. Electrocardiogram with T inversions in all leads except AVR and V1. Echocardiogram with akinetic apex. LV ejection fraction 50 percent. Peak troponin I thus far 25.8. Catheterization site: 6 Mongolian slender glide sheath right radial artery. This was inserted at the time of the diagnostic cardiac catheterization. Equipment: 6 Mongolian EBU 3.75 in EBU 4.0 guide catheters. The EBU 3.75 guide catheter would not adequately cannulate the left main coronary artery. Adequate cannulation of the left main coronary artery was obtained with the EBU 4.0 guide catheter. [place]uma J-tip FFR pressure wire. Gen[employer] Resolute Integrity 4 x 15 millimeter drug-eluting stent. Protocol: The pressure wire was balanced and normalized. The transducer was then passed into the mid LAD. IFR measurement of the proximal LAD stenosis was performed. Intravenous adenosine was then administered at a dose of 180 micrograms/kilogram per minute for 2 minutes. FFR measurements were obtained. The [place] pressure wire was kept in place in the LAD. The stent was then deployed in the direct fashion to the proximal LAD at a pressure of 9 atmospheres for 45 seconds. Follow-up angiography was performed with the stent delivery balloon kept in place. A 2nd balloon inflation of 12 atmospheres for duration of 15 seconds was then performed. Follow-up angiography was then performed from orthogonal projections with the guidewire in place and the guidewire withdrawn. The patient had no complaints of chest pain during or following the interventional procedure. He was hemodynamically stable throughout the procedure. No arrhythmias. Hemostasis: Terumo TR band. Complications: None . Findings: IFR of the proximal LAD stenosis was 0.90. FFR of the proximal LAD stenosis was 0.78. Guiding angiography with the guide catheter and with the guidewire across the proximal LAD stenosis showed at least a 70 percent proximal LAD stenosis. This segment of the LAD had a hazy appearance. LEILA 3 flow in the LAD. Following stent deployment and post stent deployment balloon inflation the residual stenosis at the proximal LAD stent site was 0 percent. There was a step-up and step-down prior to and distal to the stent respectively. The stent appeared to be fully expanded on angiography. there is no evidence of dissection, thrombus, perforation, or distal embolic event. LEILA 3 flow in the LAD and its branches. Plan: The patient received intravenous Integrilin and heparin prior to intervention. A therapeutic activated clotting time was documented. He will remain on intravenous Integrilin for 18 hours. He was given a loading dose of oral clopidogrel 600 milligrams post PCI. He should remain on dual antiplatelet therapy for 1 year post PCI. He should remain on aspirin therapy indefinitely. He will remain on beta-sarmad, statin, and OSMEL-inhibitor therapy. He will have Cardiology follow-up with Dr. Joni Jean. Hemodynamics Rest Ao: 111/55 76 mm Hg Final Ao: 127/61/86 mm Hg LV: NA Recommendations Medical therapy and/or Counseling, PCI without planned CABG Specimens None Radiation Exposure (mGy) Total of 3119 for both the diagnostic and interventional procedures Contrast (mls) Total of 260 milliliters of Visipaque for both diagnostic and interventiona Fluids (cc crystalloids) Total of 100 milliliters for both procedures. Drains None Anesthesia No additional anesthesia administered during FFR or PCI procedure. Procedural Complication(s) None Disposition PCU ACC Data Cardiac Status Clinical evaluation leading to the procedure CAD Presntation: Non STEMI Anginal Classification: CCS IV Heart Failure: No Cardiogenic Shock w/in 24Hrs: No Cardiac Arrest w/in 24Hrs: No Imaging studies past 6 months: Yes Stress studies past 6 months: No Standard Exercise Stress Test: No Stress Echocardiogram: No Stress Testing w/SPECT MPI: No Cardiac CTA: No Coronary Anatomy Dominant: Right (Please see Dr. Al's diagnostic cath report for complete details of diagnostic angiography) Diagnostic Physician's Name: Carlos Jean MD Status: Elective Closure Device Percutaneous Entry Location: Radial Closure Device: Radial Band Recommendations: Medical therapy and/or Counseling, PCI without planned CABG PCI Indication: PCI for high risk Non-STEMI Lesion Segment Name: Proximal LAD Culprit Artery: Yes Stenosis Prior to Rx (%): 70 Chronic Total Occlusion: No IVUS: No FFR: Yes Ratio: less than or equal to 0.75% (0.78) Pre-Procedure LEILA Flow: 3 Previously Treated Lesion: No Lesion Complexity: Non-High/Non-C Lesion Length (mm): 12 Thrombus Present: Yes Bifurcation Lesion: No Guidewire Across Lesion: Yes Guidewire: Stenosis Post-Procedure (%): 0 Post-Procedure LEILA Flow: 3 Device(s) Deployed: Yes Type of Device(s): Medtronic Resolute Integrity 4 x 15 millimeter drug-eluting stent Intraprocedure Events Significant Dissection: No Perforation: No
--- NOTE | 2017-01-19 16:11 | Progress Note ---
Subjective Date of Service: Jan 19, 2017. Subjective Pt evaluation today including: conversation w/ patient, conversation w/ family , physical exam, lab review, conversation w/ architecture consultant, review of inpatient medication list Pain: no further chest pain PO Intake: NPO for heart cath Voiding: no voiding problems patient without any further symptoms since admission, vitals stable reviewed labs, troponin up to 19 d/w Dr. Jean, plan for heart cath - moderate disease in proximal LAD, to be evaluated further by interventional cardiology Problem List Medical Problems: (1) Elevated troponin Status: Acute (2) Precordial chest pain Status: Acute Review of Systems All Other Systems: Reviewed and Negative Medications Current Inpatient Medications Medications (Trade) Dose Ordered Sig/Dylan Route Start Time Stop Time Status Last Admin Dose Admin Acetaminophen (Tylenol Tab) 650 mg Q4H PRN PO 01/18/17 15:30 02/17/17 15:29 Zolpidem Tartrate (Ambien Tab) 5 mg HSZ PRN PO 01/18/17 15:30 02/17/17 15:29 Nitroglycerin (Nitroglycerin 2% Oint) 1 inch Q6H EXT 01/18/17 22:00 02/17/17 21:59 01/19/17 10:49 1 INCH Morphine Sulfate (MoRPHine SULFATE INJ) 2 mg Q30M PRN IV 01/18/17 15:30 02/01/17 15:29 Lisinopril (Zestril Tab) 40 mg DAILY PO 01/19/17 09:00 02/18/17 08:59 01/19/17 07:39 40 MG Miscellaneous Information (Order Awaiting Action) 1 ea QS N/A 01/19/17 00:00 02/18/17 00:00 Metoprolol Tartrate (Lopressor Tab) 50 mg BID PO 01/18/17 21:00 02/17/17 20:59 01/19/17 08:36 50 MG Aspirin (Aspirin Chew) 81 mg QAM PO 01/19/17 09:00 02/18/17 08:59 01/19/17 07:38 81 MG Ondansetron HCl (Zofran Inj) 4 mg Q6H PRN IV 01/18/17 15:45 02/17/17 15:44 Potassium Chloride/Sodium Chloride 1,000 ml @ 100 mls/hr Q10H IV 01/18/17 18:45 02/17/17 15:30 01/19/17 03:50 100 MLS/HR Insulin Aspart (novoLOG ASPART) SLIDING SCALE If C... ACHS SC 01/18/17 21:00 02/17/17 20:59 01/19/17 08:29 7 UNITS Glucose (Glucose 40% Gel) UD PRN PO 01/18/17 17:45 02/17/17 17:44 Glucose (Glucose Chew Tab) 1 tabs UD PRN PO 01/18/17 17:45 02/17/17 17:44 Dextrose (Dextrose 50% 50ML Syringe) 50 ml UD PRN IV 01/18/17 17:45 02/17/17 17:44 Glucagon (Glucagon Inj) 1 mg UD PRN SQ 01/18/17 17:45 02/17/17 17:44 Atorvastatin Calcium (Lipitor Tab) 80 mg HS PO 01/19/17 21:00 02/18/17 20:59 Atropine Sulfate (Atropine Sulfate 0.1MG/Ml Inj) 0.5 mg ONE PRN IV 01/19/17 16:00 02/18/17 15:59 UNV Ondansetron HCl (Zofran Inj) 4 mg Q6H PRN IV 01/19/17 16:00 02/18/17 15:59 UNV Clopidogrel Bisulfate (plAVix TAB) 75 mg QAM PO 01/20/17 09:00 02/19/17 08:59 UNV Acetaminophen (Tylenol Tab) 650 mg Q4H PRN PO 01/19/17 16:00 02/18/17 15:59 UNV Eptifibatide (Integrilin Bolus / Drip) 1 ea ONE ONCE IV 01/19/17 16:00 01/19/17 16:01 UNV Objective Vital Signs Date Time Temp Pulse Resp B/P (MAP) Pulse Ox O2 Delivery O2 Flow Rate FiO2 01/19/17 15:41 70 16 122/60 (80) 99 Room Air 01/19/17 15:27 66 16 126/61 (82) 99 Room Air 01/19/17 12:25 36.7 76 16 123/66 (85) 96 01/19/17 12:06 36.4 66 17 141/82 94 Room Air 01/19/17 12:00 Room Air 01/19/17 08:00 Room Air 01/19/17 07:27 36.4 66 17 141/82 (101) 94 Room Air 01/19/17 04:06 36.8 57 18 134/72 (92) 94 Room Air 01/19/17 04:00 Room Air 01/19/17 00:00 Room Air 01/18/17 23:20 36.8 72 18 142/72 (95) 98 Room Air 01/18/17 21:25 63 132/81 (98) 01/18/17 20:00 95 Room Air 01/18/17 19:25 36.7 93 20 147/79 (101) 96 Room Air 01/18/17 18:15 36.6 84 16 165/87 (113) 95 Room Air 01/18/17 18:03 76 18 98 01/18/17 17:55 98 Room Air 01/18/17 17:31 74 18 145/85 98 Room Air Physical Exam General Appearance: WD/WN, no apparent distress Neck: supple, no adenopathy, no JVD, trachea midline Respiratory/Chest: chest non-tender, lungs clear, normal breath sounds, no respiratory distress, no accessory muscle use Cardiovascular: regular rate, rhythm, no edema, no gallop, no JVD, no murmur Abdomen: normal bowel sounds, non tender, soft, no organomegaly Extremities: normal range of motion, non-tender, normal inspection, no pedal edema, no calf tenderness, pelvis stable 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, no motor/sensory deficits, alert, normal mood/affect, oriented x 3 Skin: normal color, warm/dry, no rash Lymphatic: no adenopathy Laboratory Results Last 24 Hours Test 01/18/17 16:20 01/18/17 20:15 01/18/17 23:10 01/19/17 02:04 Total Creatine Kinase 99 U/L 264 U/L Creatine Kinase MB 7.2 ng/ml 25.6 ng/ml Creatine Kinase MB Ratio 7.3 9.7 Troponin I 1.920 ng/ml 19.600 ng/ml Bedside Glucose 263 mg/dl Activated Partial Thromboplast Time 38.6 SECONDS Partial Thromboplastin Ratio 1.5 Test 01/19/17 07:41 01/19/17 08:31 01/19/17 11:40 01/19/17 14:06 Bedside Glucose 188 mg/dl 147 mg/dl White Blood Count 8.55 K/uL Red Blood Count 4.75 M/uL Hemoglobin 13.7 g/dL Hematocrit 41.9 % Mean Corpuscular Volume 88.2 fL Mean Corpuscular Hemoglobin 28.8 pg Mean Corpuscular Hemoglobin Concent 32.7 g/dl Platelet Count 275 K/uL Mean Platelet Volume 10.2 fL Neutrophils (%) (Auto) 70.4 % Lymphocytes (%) (Auto) 20.4 % Monocytes (%) (Auto) 7.0 % Eosinophils (%) (Auto) 1.6 % Basophils (%) (Auto) 0.4 % Neutrophils # (Auto) 6.02 K/uL Lymphocytes # (Auto) 1.74 K/uL Monocytes # (Auto) 0.60 K/uL Eosinophils # (Auto) 0.14 K/uL Basophils # (Auto) 0.03 K/uL RDW Standard Deviation 43.7 fL RDW Coefficient of Variation 13.4 % Immature Granulocyte % (Auto) 0.2 % Immature Granulocyte # (Auto) 0.02 K/uL Prothrombin Time 11.0 SECONDS Prothromb Time International Ratio 1.0 Activated Partial Thromboplast Time 82.8 SECONDS Partial Thromboplastin Ratio 3.2 Sodium Level 140 mmol/L Potassium Level 4.0 mmol/L Chloride Level 106 mmol/L Carbon Dioxide Level 26 mmol/L Anion Gap 8.0 mmol/L Blood Urea Nitrogen 14 mg/dl Creatinine 0.82 mg/dl Est Creatinine Clear Calc Drug Dose 105.9 ml/min Estimated GFR () 108.3 Estimated GFR (Non- 93.5 BUN/Creatinine Ratio 16.5 Random Glucose 246 mg/dl Calcium Level 9.0 mg/dl Magnesium Level 2.0 mg/dl Total Bilirubin 0.8 mg/dl Direct Bilirubin 0.3 mg/dl Aspartate Amino Transf (AST/SGOT) 49 U/L Alanine Aminotransferase (ALT/SGPT) 27 U/L Alkaline Phosphatase 91 U/L Total Creatine Kinase 224 U/L Creatine Kinase MB 19.1 ng/ml Creatine Kinase MB Ratio 8.5 Troponin I 25.800 ng/ml Total Protein 6.7 gm/dl Albumin 3.4 gm/dl Triglycerides Level 72 mg/dl Cholesterol Level 206 mg/dl HDL Cholesterol 62 mg/dl LDL Cholesterol, Calculated 130 mg/dl VLDL Cholesterol, Calculated 14 mg/dl Cholesterol/HDL Ratio 3.3 Kaolin Activated Coagulation Time 153 SECONDS Test 01/19/17 14:37 01/19/17 14:57 01/19/17 15:47 01/19/17 15:56 Kaolin Activated Coagulation Time 224 SECONDS 290 SECONDS Assessment and Plan 66 yo male with chest pain and elevated troponin consistent with NSTEMI - Acute NSTEMI: no further chest pain, vitals stable left heart catheterization on 01/19, moderate disease in proximal LAD and mild to moderate disease elsewhere interventional to determine if stent needed continue metoprolol, aspirin, heparin gtt echo: EF 50%, akinetic apex, grade I diastolic dysfunction, dilated left atrium - HTN: continue Lisinopril and metoprolol, Norvasc stopped - Chronic diastolic HF: no evidence of volume overload Diabetes mellitus--hold metformin 500 mg by mouth twice a day with heart cath. continue Novolog SS while hospitalized and diabetic diet BPH-- continue dutasteride 0.5 mg by mouth daily.
[2017-01-19] MEDS: EPTIFIBATIDE INJ 75 MG PREMIXED IV SCH ×2 (16:13→21:37)
[2017-01-19 16:14] LABS: BASO % 0.4 %; BASO ABS # 0.03 K/uL (0-0.2); EOS % 1.6 %; IG% 0.2 %; LYMPH % 32.2 %; MEAN CELL VOLUME 89.3 fL (80-100); MEAN CORPUSCULAR HEMOGLOBIN 29.5 pg (25-34); MEAN PLATELET VOLUME 10.1 fL (7.4-10.4); MONO % 9.5 %; NEUT % 56.1 %; PLATELET COUNT 253 K/uL (130-400); RED BLOOD COUNT 4.48 M/uL (4.7-6.1); WHITE BLOOD COUNT 8.38 K/uL (4.8-10.8)
[2017-01-19 16:37] LABS: PARTIAL THROMBOPLASTIN RATIO 6.9
[2017-01-19 16:41] LABS: COMPLETE YES
[2017-01-19] MEDS: METOPROLOL TARTRATE 25 MG TAB PO SCH (21:26)
[2017-01-19] MEDS: ATORVASTATIN 40 MG TAB PO SCH (21:27)
[2017-01-20] VITALS (10 sets, daily range): BP systolic 127–165; BP diastolic 63–80; PULSE 56–69; TEMP 36.5–36.9; O2SAT 93–98
[2017-01-20] MEDS: NSS + 20MEQ KCL 1000ML 1,000 ML IV SCH ×2 (00:45→10:58)
[2017-01-20] MEDS: EPTIFIBATIDE INJ 75 MG PREMIXED IV SCH (03:46)
[2017-01-20] MEDS: NITROGLYCERIN OINT 2% 1GM PACKET EXT SCH ×4 (03:47→21:43)
[2017-01-20] MEDS: CLOPIDOGREL BISULFATE 75 MG TAB PO SCH (07:29)
[2017-01-20] MEDS: METOPROLOL TARTRATE 25 MG TAB PO SCH (07:29)
[2017-01-20] MEDS: LISINOPRIL 40 MG TAB PO SCH (07:29)
[2017-01-20] MEDS: INSULIN ASPART 100 UNITS/ML 3 ML PEN SC SCH ×4 (07:34→21:00)
[2017-01-20] MEDS: ASPIRIN 81 MG CHEW PO SCH (07:42)
[2017-01-20 07:52] LABS: BASO % 0.4 %; BASO ABS # 0.03 K/uL (0-0.2); COMPLETE YES; EOS % 2.4 %; HEMATOCRIT 37.2 % (42-52); IG% 0.1 %; LYMPH % 23.2 %; LYMPH ABS # 1.57 K/uL (1.2-3.4); MEAN CELL VOLUME 89.2 fL (80-100); MEAN CORPUSCULAR HEMOGLOBIN 29.7 pg (25-34); MEAN CORPUSCULAR HGB CONC 33.3 g/dl (32-36); MEAN PLATELET VOLUME 10.4 fL (7.4-10.4); MONO % 11.2 %; NEUT % 62.7 %; PLATELET COUNT 239 K/uL (130-400); RED BLOOD COUNT 4.17 M/uL (4.7-6.1); WHITE BLOOD COUNT 6.78 K/uL (4.8-10.8)
[2017-01-20] MEDS: AVODART-ORDER AWAITING ACTION SCH ×2 (08:00→16:00)
[2017-01-20 08:03] LABS: PROTHROMBIN TIME (PATIENT) 10.8 SECONDS (9.0-12.0)
[2017-01-20 08:26] LABS: BUN/CREATININE RATIO 18.3 (10-20); CREATININE 0.78 mg/dl (0.60-1.40); MAGNESIUM 2.2 mg/dl (1.8-2.4); POTASSIUM 4.2 mmol/L (3.5-5.1)
[2017-01-20] MEDS ORDERED: Integrelin infusion --> STOP ORDER ONE (09:00)
--- NOTE | 2017-01-20 13:15 | Progress Note ---
Subjective Date of Service: Jan 20, 2017. Subjective Pt evaluation today including: conversation w/ patient, physical exam, lab review, conversation w/ consultant in ergonomics and safety, review of inpatient medication list Pain: no chest pain PO Intake: adequate Voiding: no voiding problems patient doing well, no chest pain, no dyspnea, eating well, urinating well, moving bowels d/w Dr Jean, keep in hospital until tomorrow AM Problem List Medical Problems: (1) Elevated troponin Status: Acute (2) Precordial chest pain Status: Acute Review of Systems All Other Systems: Reviewed and Negative Medications Current Inpatient Medications Medications (Trade) Dose Ordered Sig/Dylan Route Start Time Stop Time Status Last Admin Dose Admin Acetaminophen (Tylenol Tab) 650 mg Q4H PRN PO 01/18/17 15:30 02/17/17 15:29 Zolpidem Tartrate (Ambien Tab) 5 mg HSZ PRN PO 01/18/17 15:30 02/17/17 15:29 Nitroglycerin (Nitroglycerin 2% Oint) 1 inch Q6H EXT 01/18/17 22:00 02/17/17 21:59 01/20/17 03:47 1 INCH Morphine Sulfate (MoRPHine SULFATE INJ) 2 mg Q30M PRN IV 01/18/17 15:30 02/01/17 15:29 Lisinopril (Zestril Tab) 40 mg DAILY PO 01/19/17 09:00 02/18/17 08:59 01/20/17 07:29 40 MG Miscellaneous Information (Order Awaiting Action) 1 ea QS N/A 01/19/17 00:00 02/18/17 00:00 Aspirin (Aspirin Chew) 81 mg QAM PO 01/19/17 09:00 02/18/17 08:59 01/20/17 07:42 81 MG Ondansetron HCl (Zofran Inj) 4 mg Q6H PRN IV 01/18/17 15:45 02/17/17 15:44 Potassium Chloride/Sodium Chloride 1,000 ml @ 100 mls/hr Q10H IV 01/18/17 18:45 02/17/17 15:30 01/20/17 10:58 100 MLS/HR Insulin Aspart (novoLOG ASPART) SLIDING SCALE If C... ACHS SC 01/18/17 21:00 02/17/17 20:59 01/20/17 11:34 5 UNITS Glucose (Glucose 40% Gel) UD PRN PO 01/18/17 17:45 02/17/17 17:44 Glucose (Glucose Chew Tab) 1 tabs UD PRN PO 01/18/17 17:45 02/17/17 17:44 Dextrose (Dextrose 50% 50ML Syringe) 50 ml UD PRN IV 01/18/17 17:45 02/17/17 17:44 Glucagon (Glucagon Inj) 1 mg UD PRN SQ 01/18/17 17:45 02/17/17 17:44 Atorvastatin Calcium (Lipitor Tab) 80 mg HS PO 01/19/17 21:00 02/18/17 20:59 01/19/17 21:27 80 MG Atropine Sulfate (Atropine Sulfate 0.1MG/Ml Inj) 0.5 mg ONE PRN IV 01/19/17 16:00 02/18/17 15:59 Clopidogrel Bisulfate (plAVix TAB) 75 mg QAM PO 01/20/17 09:00 02/19/17 08:59 01/20/17 07:29 75 MG Metoprolol Tartrate (Lopressor Tab) 25 mg BID PO 01/19/17 21:00 02/17/17 20:59 01/20/17 07:29 25 MG Objective Vital Signs Date Time Temp Pulse Resp B/P (MAP) Pulse Ox O2 Delivery O2 Flow Rate FiO2 01/20/17 12:00 96 Room Air 01/20/17 10:51 36.6 58 18 147/80 (102) 96 Room Air 01/20/17 08:00 94 Room Air 01/20/17 07:32 36.9 68 18 146/76 (99) 94 Room Air 01/20/17 04:18 36.8 56 18 153/63 (93) 93 Room Air 01/20/17 04:00 Room Air 01/20/17 00:02 36.8 56 18 127/64 (85) 94 Room Air 01/19/17 23:59 Room Air 01/19/17 20:04 36.6 59 18 130/71 (90) 97 Room Air 01/19/17 20:00 Room Air 01/19/17 19:42 36.5 62 21 142/81 (101) 98 Room Air 01/19/17 18:37 56 16 134/68 (90) 97 01/19/17 18:12 54 16 124/67 (86) 97 01/19/17 17:21 69 16 144/74 (97) 98 01/19/17 16:45 56 16 134/68 (90) 98 01/19/17 16:24 36.6 54 16 127/72 (90) 97 Room Air 01/19/17 16:06 36.6 57 16 132/67 (88) 98 Room Air 01/19/17 16:00 Room Air 01/19/17 15:41 70 16 122/60 (80) 99 Room Air 01/19/17 15:27 66 16 126/61 (82) 99 Room Air Physical Exam General Appearance: no apparent distress, + thin Eyes: normal inspection, EOMI, sclerae normal ENT: normal ENT inspection, hearing grossly normal, pharynx normal Neck: supple, no adenopathy, no JVD, trachea midline Respiratory/Chest: chest non-tender, lungs clear, normal breath sounds, no respiratory distress, no accessory muscle use Cardiovascular: regular rate, rhythm, no edema, no gallop, no JVD, no murmur Abdomen: normal bowel sounds, non tender, soft, no organomegaly Extremities: normal range of motion, non-tender, normal inspection, no pedal edema, no calf tenderness 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, no motor/sensory deficits, alert, normal mood/affect, oriented x 3 Skin: normal color, warm/dry, no rash Lymphatic: no adenopathy Laboratory Results Last 24 Hours Test 01/19/17 14:06 01/19/17 14:37 01/19/17 14:57 01/19/17 15:56 Kaolin Activated Coagulation Time 153 SECONDS 224 SECONDS 290 SECONDS Activated Partial Thromboplast Time 178.8 SECONDS Partial Thromboplastin Ratio 6.9 Test 01/19/17 16:02 01/19/17 16:22 01/19/17 21:14 01/20/17 07:11 White Blood Count 8.38 K/uL Red Blood Count 4.48 M/uL Hemoglobin 13.2 g/dL Hematocrit 40.0 % Mean Corpuscular Volume 89.3 fL Mean Corpuscular Hemoglobin 29.5 pg Mean Corpuscular Hemoglobin Concent 33.0 g/dl Platelet Count 253 K/uL Mean Platelet Volume 10.1 fL Neutrophils (%) (Auto) 56.1 % Lymphocytes (%) (Auto) 32.2 % Monocytes (%) (Auto) 9.5 % Eosinophils (%) (Auto) 1.6 % Basophils (%) (Auto) 0.4 % Neutrophils # (Auto) 4.70 K/uL Lymphocytes # (Auto) 2.70 K/uL Monocytes # (Auto) 0.80 K/uL Eosinophils # (Auto) 0.13 K/uL Basophils # (Auto) 0.03 K/uL RDW Standard Deviation 44.3 fL RDW Coefficient of Variation 13.5 % Immature Granulocyte % (Auto) 0.2 % Immature Granulocyte # (Auto) 0.02 K/uL Bedside Glucose 129 mg/dl 154 mg/dl 137 mg/dl Test 01/20/17 07:18 01/20/17 10:58 White Blood Count 6.78 K/uL Red Blood Count 4.17 M/uL Hemoglobin 12.4 g/dL Hematocrit 37.2 % Mean Corpuscular Volume 89.2 fL Mean Corpuscular Hemoglobin 29.7 pg Mean Corpuscular Hemoglobin Concent 33.3 g/dl Platelet Count 239 K/uL Mean Platelet Volume 10.4 fL Neutrophils (%) (Auto) 62.7 % Lymphocytes (%) (Auto) 23.2 % Monocytes (%) (Auto) 11.2 % Eosinophils (%) (Auto) 2.4 % Basophils (%) (Auto) 0.4 % Neutrophils # (Auto) 4.25 K/uL Lymphocytes # (Auto) 1.57 K/uL Monocytes # (Auto) 0.76 K/uL Eosinophils # (Auto) 0.16 K/uL Basophils # (Auto) 0.03 K/uL RDW Standard Deviation 44.9 fL RDW Coefficient of Variation 13.6 % Immature Granulocyte % (Auto) 0.1 % Immature Granulocyte # (Auto) 0.01 K/uL Prothrombin Time 10.8 SECONDS Prothromb Time International Ratio 1.0 Activated Partial Thromboplast Time 26.8 SECONDS Partial Thromboplastin Ratio 1.0 Sodium Level 140 mmol/L Potassium Level 4.2 mmol/L Chloride Level 108 mmol/L Carbon Dioxide Level 26 mmol/L Anion Gap 6.0 mmol/L Blood Urea Nitrogen 14 mg/dl Creatinine 0.78 mg/dl Est Creatinine Clear Calc Drug Dose 111.3 ml/min Estimated GFR () 110.6 Estimated GFR (Non- 95.4 BUN/Creatinine Ratio 18.3 Random Glucose 139 mg/dl Calcium Level 9.0 mg/dl Magnesium Level 2.2 mg/dl Total Bilirubin 0.9 mg/dl Direct Bilirubin 0.3 mg/dl Aspartate Amino Transf (AST/SGOT) 25 U/L Alanine Aminotransferase (ALT/SGPT) 23 U/L Alkaline Phosphatase 88 U/L Total Protein 6.3 gm/dl Albumin 3.2 gm/dl Bedside Glucose 177 mg/dl Assessment and Plan 66 yo male with chest pain and elevated troponin consistent with NSTEMI - Acute NSTEMI: no further chest pain, vitals stable left heart catheterization on 01/19, moderate disease in proximal LAD and mild to moderate disease elsewhere ADRIANA placed in LAD, tolerated well, treated with Integrillin until this AM continue metoprolol, aspirin, Plavix echo: EF 50%, akinetic apex, grade I diastolic dysfunction, dilated left atrium - HTN: continue Lisinopril and metoprolol, Norvasc stopped - Chronic diastolic HF: no evidence of volume overload Diabetes mellitus--hold metformin 500 mg by mouth twice a day with heart cath. continue Novolog SS while hospitalized and diabetic diet BPH-- continue dutasteride 0.5 mg by mouth daily. keep on tele, d/c tomorrow AM per cardiology
[2017-01-20] MEDS ORDERED: NURSING VERBAL MED ORDER ONE (17:45)
--- NOTE | 2017-01-20 18:45 | Cardiology Follow-Up ---
Subjective Date of Service: Jan 20, 2017. Pt evaluation today including: conversation w/ patient, conversation w/ family , physical exam, chart review, lab review, review of studies, review of inpatient medication list, conversation w/ attending History of Present Illness Yesterday he underwent proximal LAD PCI. He tolerated the procedure well. He denies chest pain, angina, syncope, near-syncope, palpitations, shortness of breath, or edema. He did have some hematuria overnight while on Integrilin, but this has since subsided. He would like to go home soon. He did not yet walking the hallways. Review of systems: As above. Social History Smoking Status: Current Every Day Smoker History of Alcohol Use: No Medications Current Inpatient Medications Medications (Trade) Dose Ordered Sig/Dylan Route Start Time Stop Time Status Last Admin Dose Admin Acetaminophen (Tylenol Tab) 650 mg Q4H PRN PO 01/18/17 15:30 02/17/17 15:29 Zolpidem Tartrate (Ambien Tab) 5 mg HSZ PRN PO 01/18/17 15:30 02/17/17 15:29 Nitroglycerin (Nitroglycerin 2% Oint) 1 inch Q6H EXT 01/18/17 22:00 02/17/17 21:59 01/20/17 16:21 1 INCH Morphine Sulfate (MoRPHine SULFATE INJ) 2 mg Q30M PRN IV 01/18/17 15:30 02/01/17 15:29 Lisinopril (Zestril Tab) 40 mg DAILY PO 01/19/17 09:00 02/18/17 08:59 01/20/17 07:29 40 MG Miscellaneous Information (Order Awaiting Action) 1 ea QS N/A 01/19/17 00:00 02/18/17 00:00 Aspirin (Aspirin Chew) 81 mg QAM PO 01/19/17 09:00 02/18/17 08:59 01/20/17 07:42 81 MG Ondansetron HCl (Zofran Inj) 4 mg Q6H PRN IV 01/18/17 15:45 02/17/17 15:44 Insulin Aspart (novoLOG ASPART) SLIDING SCALE If C... ACHS SC 01/18/17 21:00 02/17/17 20:59 01/20/17 17:10 4 UNITS Glucose (Glucose 40% Gel) UD PRN PO 01/18/17 17:45 02/17/17 17:44 Glucose (Glucose Chew Tab) 1 tabs UD PRN PO 01/18/17 17:45 02/17/17 17:44 Dextrose (Dextrose 50% 50ML Syringe) 50 ml UD PRN IV 01/18/17 17:45 02/17/17 17:44 Glucagon (Glucagon Inj) 1 mg UD PRN SQ 01/18/17 17:45 02/17/17 17:44 Atorvastatin Calcium (Lipitor Tab) 80 mg HS PO 01/19/17 21:00 02/18/17 20:59 01/19/17 21:27 80 MG Atropine Sulfate (Atropine Sulfate 0.1MG/Ml Inj) 0.5 mg ONE PRN IV 01/19/17 16:00 02/18/17 15:59 Clopidogrel Bisulfate (plAVix TAB) 75 mg QAM PO 01/20/17 09:00 02/19/17 08:59 01/20/17 07:29 75 MG Metoprolol Tartrate (Lopressor Tab) 25 mg BID PO 01/19/17 21:00 02/17/17 20:59 01/20/17 07:29 25 MG Objective Vital Signs Past 12 Hours Date Time Temp Pulse Resp B/P (MAP) Pulse Ox O2 Delivery O2 Flow Rate FiO2 01/20/17 16:00 98 Room Air 01/20/17 15:17 36.5 69 20 165/79 (107) 98 Room Air 01/20/17 12:00 96 Room Air 01/20/17 10:51 36.6 58 18 147/80 (102) 96 Room Air 01/20/17 08:00 94 Room Air 01/20/17 07:32 36.9 68 18 146/76 (99) 94 Room Air Last Recorded Weight-Kilograms: 90.400 Intake & Output 01/19/17 01/20/17 01/21/17 08:00 08:00 08:00 Intake Total 1712 ml 3101 ml 1383 ml Output Total 1450 ml 750 ml 600 ml Balance 262 ml 2351 ml 783 ml 8-Hour Column 01/20/17 01/21/17 01/21/17 16:00 00:00 08:00 Intake Total 1383 ml Output Total 600 ml Balance 783 ml 24-Hour Column 01/21/17 08:00 Intake Total 1383 ml Output Total 600 ml Balance 783 ml Physical Exam Gen.: No acute distress. Alert and oriented. HEENT: Anicteric sclera. Neck: No JVD. Cardiac: No ventricular heave. Regular. Normal S1-S2. No murmurs, rubs, or gallops. Pulmonary: Clear to auscultation bilaterally without wheezes, rales, or rhonchi. Abdomen: Soft, nontender, nondistended, with normoactive bowel sounds. No bruits noted. Extremities: 2+ right radial. Right radial cath site is clean, dry and intact without erythema. 2+ posterior tibialis pulses bilaterally. Trace bilateral pedal edema. No cyanosis. Psychiatric: Affect appears appropriate. Data Laboratory Results: Last 24 Hours Test 01/19/17 21:14 01/20/17 07:11 01/20/17 07:18 01/20/17 10:58 Bedside Glucose 154 mg/dl 137 mg/dl 177 mg/dl White Blood Count 6.78 K/uL Red Blood Count 4.17 M/uL Hemoglobin 12.4 g/dL Hematocrit 37.2 % Mean Corpuscular Volume 89.2 fL Mean Corpuscular Hemoglobin 29.7 pg Mean Corpuscular Hemoglobin Concent 33.3 g/dl Platelet Count 239 K/uL Mean Platelet Volume 10.4 fL Neutrophils (%) (Auto) 62.7 % Lymphocytes (%) (Auto) 23.2 % Monocytes (%) (Auto) 11.2 % Eosinophils (%) (Auto) 2.4 % Basophils (%) (Auto) 0.4 % Neutrophils # (Auto) 4.25 K/uL Lymphocytes # (Auto) 1.57 K/uL Monocytes # (Auto) 0.76 K/uL Eosinophils # (Auto) 0.16 K/uL Basophils # (Auto) 0.03 K/uL RDW Standard Deviation 44.9 fL RDW Coefficient of Variation 13.6 % Immature Granulocyte % (Auto) 0.1 % Immature Granulocyte # (Auto) 0.01 K/uL Prothrombin Time 10.8 SECONDS Prothromb Time International Ratio 1.0 Activated Partial Thromboplast Time 26.8 SECONDS Partial Thromboplastin Ratio 1.0 Sodium Level 140 mmol/L Potassium Level 4.2 mmol/L Chloride Level 108 mmol/L Carbon Dioxide Level 26 mmol/L Anion Gap 6.0 mmol/L Blood Urea Nitrogen 14 mg/dl Creatinine 0.78 mg/dl Est Creatinine Clear Calc Drug Dose 111.3 ml/min Estimated GFR () 110.6 Estimated GFR (Non- 95.4 BUN/Creatinine Ratio 18.3 Random Glucose 139 mg/dl Calcium Level 9.0 mg/dl Magnesium Level 2.2 mg/dl Total Bilirubin 0.9 mg/dl Direct Bilirubin 0.3 mg/dl Aspartate Amino Transf (AST/SGOT) 25 U/L Alanine Aminotransferase (ALT/SGPT) 23 U/L Alkaline Phosphatase 88 U/L Total Protein 6.3 gm/dl Albumin 3.2 gm/dl Test 01/20/17 17:49 Troponin I 11.200 ng/ml Imaging: Echo 01/19/2017: 1. Mildly dilated left ventricular size with mildly reduced to low-normal systolic function. EF 50%. Akinetic apex. No left ventricular hypertrophy. Type 1 diastolic dysfunction. No apical thrombus. * 2. The left atrium is mildly dilated. * 3. No significant valvular abnormalities. * 4. No prior study available for comparison. Cardiac catheterization from 01/19/2017: Proximal LAD 70% (abnormal FFR) which underwent 4 x 15 mm resolute drug-eluting stent placement. Mid LAD 30%. Proximal circumflex 20%. OM2 proximal and mid 30%. Proximal RCA 50%. ECG personally reviewed from 01/20/2017 at 6:39 a.m.: Sinus rhythm at 67 bpm. Anterior T-wave inversion. Inferior T-wave inversion. Telemetry reviewed: No ventricular arrhythmia. PVCs noted. Sinus rhythm. Assessment and Plan ASSESSMENT/PLAN: 1. NSTEMI: Underwent proximal LAD PCI. Continue aspirin 81 mg daily indefinitely. Continue Plavix 75 mg daily for at least 1 year. Continue beta- sarmad as tolerated. Continue high-intensity statin therapy and OSMEL- inhibitor. No further angina. Recommend cardiac rehabilitation upon discharge. 2. CAD: LAD PCI as mentioned above. Medical therapy as above. 3. Hypertension: Blood pressure is elevated. Will change metoprolol tartrate to carvedilol as metoprolol was causing bradycardia yesterday at 50 mg twice daily. Carvedilol 6.25 mg twice daily will be started this evening. 4. Tobacco abuse: Once again discussed the importance of smoking cessation. 5. Paroxysmal Ventricular Tachycardia: Likely due to ischemic heart disease in the setting of NSTEMI. Continue betablocker. Monitor electrolytes. No further ventricular tachycardia in the past 24 hours. 6. Disposition: Can be discharged tomorrow if continues to do well from a cardiac standpoint. He was asked to ambulate around the hallways. IV fluids discontinued at this time.
[2017-01-20] MEDS: ATORVASTATIN 40 MG TAB PO SCH (21:11)
[2017-01-20] MEDS: CARVEDILOL 6.25 MG TAB PO SCH (21:38)
[2017-01-21 00:08] VITALS: BP 148/75; PULSE 71; TEMP 37; O2SAT 94
[2017-01-21 04:23] VITALS: BP 154/73; PULSE 66; TEMP 36.9; O2SAT 96
[2017-01-21] MEDS: NITROGLYCERIN OINT 2% 1GM PACKET EXT SCH ×2 (04:52→07:42)
[2017-01-21 06:30] LABS: BASO % 0.5 %; BASO ABS # 0.03 K/uL (0-0.2); COMPLETE YES; EOS % 3.4 %; HEMATOCRIT 39.6 % (42-52); IG% 0.3 %; LYMPH % 24.3 %; LYMPH ABS # 1.44 K/uL (1.2-3.4); MEAN CELL VOLUME 89.8 fL (80-100); MEAN CORPUSCULAR HEMOGLOBIN 29.5 pg (25-34); MEAN CORPUSCULAR HGB CONC 32.8 g/dl (32-36); MEAN PLATELET VOLUME 10.9 fL (7.4-10.4); MONO % 10.8 %; NEUT % 60.7 %; PLATELET COUNT 221 K/uL (130-400); RED BLOOD COUNT 4.41 M/uL (4.7-6.1); WHITE BLOOD COUNT 5.93 K/uL (4.8-10.8)
[2017-01-21 07:13] LABS: BUN/CREATININE RATIO 17.8 (10-20); CALCIUM 9.2 mg/dl (8.5-10.1); CREATININE 0.81 mg/dl (0.60-1.40); MAGNESIUM 2.2 mg/dl (1.8-2.4)
[2017-01-21] MEDS: AVODART-ORDER AWAITING ACTION SCH ×2 (07:26)
[2017-01-21 07:37] VITALS: BP 148/84; PULSE 64; TEMP 36.8; O2SAT 96
[2017-01-21] MEDS: CLOPIDOGREL BISULFATE 75 MG TAB PO SCH (07:41)
[2017-01-21] MEDS: ASPIRIN 81 MG CHEW PO SCH (07:41)
[2017-01-21] MEDS: CARVEDILOL 6.25 MG TAB PO SCH (07:42)
[2017-01-21] MEDS: LISINOPRIL 40 MG TAB PO SCH (07:42)
[2017-01-21] MEDS: INSULIN ASPART 100 UNITS/ML 3 ML PEN SC SCH (07:45)
[2017-01-21] MEDS ORDERED: ASPCH81 PO (08:51)
[2017-01-21] MEDS ORDERED: PLV75 PO (08:51)
[2017-01-21] MEDS ORDERED: CRG625 PO (08:51)
[2017-01-21] MEDS ORDERED: LPT40 PO (08:51)
[2017-01-21 09:29] LABS: ESTIMATED AVERAGE GLUCOSE 186 mg/dl; HA1C FLAG Normal (Normal)
[2017-01-21] MEDS ORDERED: METF-841 PO (09:45)
--- NOTE | 2017-01-21 09:46 | Discharge Instructions ---
Discharge Instructions Date of Service Jan 21, 2017. Admission Reason for Admission: NSTEMI Discharge Discharge Diagnosis / Problem: NSTEMI, dyslipidemia Discharge Goals Goal(s): Improve function, Improve disease control, Improve nutritional status , Learn about illness, Specific goals (stop smoking) Activity Recommendations Activity Limitations: resume your previous activity Lifting Limitations: none Exercise/Sports Limitations: as tolerated May Resume Sexual Activity: when tolerated Shower/Bathe: no limitations Driving or Machine Use: no limitations . Instructions / Follow-Up Instructions / Follow-Up Medications: - ASPIRIN: 81mg daily, take for life - PLAVIX: 75mg daily, will need to take for the next year due to stent placement - LIPITOR: 80mg daily, high intensity statin, proven to reduce risk of a future heart attack and stabilized coronary plaque, can cause muscle aches - COREG: blood pressure medication that both lowers pressure and lowers heart rate, decreases stress on heart - METFORMIN: increase dose to 1000mg twice a day for better control of sugars In summary, you presented with signs and symptoms of a heart attack and you were treated with medications (aspirin, Lipitor, heparin, Integrillin and Plavix ) and you underwent a left heart catheterization and drug eluting stent was placed in the LAD for stenosis of 70%. We have started several medications to prevent or reduce risk of future heart attacks. - Aspirin and Plavix: antiplatelets, need to take EVERY day - Lipitor: cholesterol medication that stabilizes plaques, clinically proven to PREVENT future heart attacks better than any other medication - Coreg and Lisinopril: reduce strain/stress on heart - Control your diabetes by taking Metformin, dose increased from 500mg twice a day to 1000mg twice a day, HbA1c is 8.1, should be < 7.5 to prevent FL/stroke also, make an effort to eat less complex carbohydrates like breads and pastas and avoid sweets - You need to stop smoking as smoking increases the risk of another heart attack or stroke in the future, discuss with your primary care doctor about options to quit If your chest pain returns or is more intense, return to the ED immediately as it could be a sign of a clot in the stent. Your echocardiogram showed that ejection fraction was preserved and the apex of the heart was not moving very well due to the heart attack. FOLLOW UP - Dr. Bergeron in one week - Dr. Jean in a few weeks - cardiac rehab, file clerk data entry will set this up Current Hospital Diet Patient's current hospital diet: AHA Diet (Heart Healthy), Diabetes Type 2 Diet Discharge Diet Recommended Diet: AHA Diet (Heart Healthy), Diabetes Type 2 Diet Procedures Procedures Performed: Left heart catheterization on 01/19, ADRIANA placed in the LAD for 70% stenosis Pending Studies Studies pending at discharge: no Laboratory Results Hemoglobin A1c Test 01/21/17 08:52 Range/Units Lipid Panel Test 01/19/17 08:31 Range/Units Triglycerides Level 72 0-150 mg/dl Cholesterol Level 206 H 0-200 mg/dl HDL Cholesterol 62 mg/dl Cholesterol/HDL Ratio 3.3 LDL Cholesterol, Calculated 130 mg/dl Medical Emergencies . Who to Call and When: Medical Emergencies: If at any time you feel your situation is an emergency, please call 911 immediately. . Non-Emergent Contact Non-Emergency issues call your: Primary Care Provider, Cardroom Supervisor Call Non-Emergent contact if: you have any medication questions . . "Provider Documentation" section prepared by Dre Nevarez. . VTE Core Measure Inpt VTE Proph given/why not?: Other Anticoagulation (IV heparin) [place] Drug Monitoring Program Search Results: no issues identified
[2017-01-21 09:47] VITALS: BP 148/84; PULSE 64; TEMP 36.8; O2SAT 96
--- NOTE | 2017-01-21 09:55 | Discharge Summary ---
Discharge Summary Date of Service Jan 21, 2017. Discharge Summary Admission Date: Jan 18, 2017 at 15:27 Discharge Date: Jan 21, 2017 Discharge Disposition: Home Principal Diagnosis: NSTEMI Problems/Secondary Diagnoses: HTN Dyslipidemia DM type II tobacco abuse Immunizations: Have You Had Influenza Vaccine: Unknown History of Tetanus Vaccine?: Unknown History of Pneumococcal: Unknown History of Hepatitis B Vaccine: Unknown Procedures: Left heart catheterization 01/19 - ADRIANA placed in the LAD for 70% stenosis, mild to moderate disease in other vessels Consultations: Cardiology Medication Reconciliation New Medications: Aspirin (Aspirin Low Strength) 81 Mg Chew 81 MG PO QAM, #30 TABS 3 Refills Atorvastatin (Atorvastatin Calcium) 40 Mg Tab 80 MG PO HS, #60 TAB 3 Refills Carvedilol (Carvedilol) 6.25 Mg Tab 6.25 MG PO BID, #60 TAB 3 Refills Clopidogrel Bisulfate (Clopidogrel) 75 Mg Tab 75 MG PO QAM, #30 TAB 5 Refills Changed Medications: Metformin HCl (Metformin HCl ER) 1,000 Mg Tab 1000 MG PO BID for 30 Days, #6 TABS 3 Refills (Changed from: Metformin Hcl ( Glucophage) 500 Mg Tab 500 Mg PO BID) Continued Medications: Alfuzosin Hcl (Uroxatral) 10 Mg Tab 10 MG PO DAILY, TAB Dutasteride (Avodart) 0.5 Mg Cap 0.5 MG PO DAILY, CAP Lisinopril (Zestril) 40 Mg Tab 40 MG PO DAILY, TAB Discontinued Medications: Amlodipine (Norvasc) 10 Mg Tab 10 MG PO DAILY, TAB Discharge Exam Patient feeling well, no chest pain today. Was walking in the [place] since 5am, anxious to get out of the hospital. Vitals stable, labs have been stable. Reviewed HbA1c of 8.1, discussed with patient the need for better glucose control, < 7.5, will be increasing Metformin. Reviewed all of his discharge medications and the reasons for taking, possible side effects to watch for. Discussed smoking cessation, he says that his threw away cigarettes and ana trays, he is committed to quitting, already feels like breathing is better today. Review of Systems: Constitutional: No fever, No chills, No sweats, No weight loss, No weakness , No fatigue, No problem reported Eyes: No worsening of vision, No eye pain, No redness, No discharge, No diplopia, No problem reported ENT: No hearing loss, No unusual epistaxis, No nasal symptoms, No sore throat, No tinnitus, No dental problems, No trouble swallowing, No problem reported Respiratory: No cough, No sputum, No wheezing, No shortness of breath, No dyspnea on exertion, No dyspnea at rest, No hemoptysis, No problem reported Cardiovascular: No chest pain, No orthopnea, No PND, No edema, No claudication, No palpitations, No problem reported Abdomen: No pain, No nausea, No vomiting, No diarrhea, No constipation, No GI bleeding, No problem reported Musculoskeletal: No joint pain, No muscle pain, No swelling, No calf pain, No problem reported Genitourinary - Male: No hematuria, No dysuria, No urinary frequency, No urinary urgency Neurologic: No memory loss, No paralysis, No weakness, No numbness/tingling , No vertigo, No balance problems, No problem reported Psychiatric: No depression symptoms, No anhedonism, No anxiety, No insomnia , No substance abuse, No problem reported Endocrine: No fatigue, No excessive thirst, No excessive urination, No problem reported Hematologic / Lymphatic: No abnormal bleeding/bruising, No clotting problems , No swollen lymph nodes, No night sweats, No problem reported Integumentary: No rash, No itch, No new/changing skin lesions, No color change, No bleeding, No problem reported Physical Exam: General Appearance: no apparent distress, + thin Eyes: normal inspection, EOMI, sclerae normal ENT: normal ENT inspection, hearing grossly normal, pharynx normal Neck: supple, no adenopathy, no JVD, trachea midline Respiratory/Chest: chest non-tender, lungs clear, normal breath sounds, no respiratory distress, no accessory muscle use Cardiovascular: regular rate, rhythm, no edema, no gallop, no JVD, no murmur , normal peripheral pulses Abdomen / GI: normal bowel sounds, non tender, soft, no organomegaly Extremities: normal inspection, no calf tenderness, normal capillary refill , no pedal edema, normal range of motion, pelvis stable 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/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, no motor/sensory deficits , alert, normal mood/affect, normal reflexes, oriented x 3 Skin: normal color, warm/dry, no rash Lymphatic: no adenopathy Hospital Course 66 yo male with chest pain and elevated troponin consistent with NSTEMI - Acute NSTEMI: no further chest pain, vitals stable, ambulating in hallway and no chest pain or pressure left heart catheterization on 01/19, moderate disease in proximal LAD and mild to moderate disease elsewhere ADRIANA placed in LAD, tolerated well, treated with Integrillin until 9am 01/20 continue Coreg, aspirin and Plavix on discharge continue Lipitor 80mg daily echo: EF 50%, akinetic apex, grade I diastolic dysfunction, dilated left atrium - HTN: continue Lisinopril and Coreg, Norvasc stopped if pressures elevated in the office, could add back Norvasc at 5mg daily - Chronic diastolic HF: no evidence of volume overload - Dyslipidemia: started on Lipitor 80mg daily warned patient of muscle aches as side effect Diabetes mellitus--HbA1c is 8.1 so not at goal of 7.5 discussed with patient, will increase Metformin to 1000mg BID from 500mg BID , stressed importance of low carb diet follow up with PCP BPH-- continue dutasteride 0.5 mg by mouth daily. Tobacco abuse: patient will quit smoking, he says he is committed to this Total Time Spent: Greater than 30 minutes This includes examination of the patient, discharge planning, medication reconciliation, and communication with other providers. Discharge Instructions Please refer to the electronic Patient Visit Report (Discharge Instructions) for additional information. Follow-Up Dr. Bergeron in one week Dr. Jean in a few weeks cardiac rehab Additional Copies To Carlos Jean MD; Jr Bergeron M.D.
--- NOTE | 2017-01-21 10:08 | Consultant Recommendations ---
Payable Processor Recommendations Date of Service Jan 21, 2017. Payable Processor Recommendations ACTIVITY RECOMMENDATIONS: Excess manipulation of the wrist should be avoided for the next 24-48 hours. * No lifting over 2 pounds (approximately a 1/2 gallon of milk) with the utilized arm for 24 hours. * No strenuous activity such as bowling or tennis for 3 days. * Keep the site of the procedure covered with a bandage for 24 hours. *You may shower the day after the procedure. Do not take a tub bath or submerge the puncture site in water for the next 3 days. *Do not operate any motorized equipment for 3 days. SPECIAL CARE INSTRUCTIONS: The site may be slightly bruised and sore following your procedure. Should any of the following occur, contact the Dr. who performed your procedure. 1. Redness/inflammation, swelling, chills, or fever, or colored drainage at procedure site within 3-7 days after your procedure. 2. Coldness, discoloration, ongoing numbness, severe pain, or swelling. Expect mild tingling of hand and tenderness at the puncture site for up to three days. If this persists beyond three days, or other symptoms develop, notify the Dr. who performed your procedure. BLEEDING: If the procedure site on your wrist begins to bleed, do not panic 1. Place 1 or 2 fingers firmly just slightly above the insertion site to stop the bleeding. You may be able to feel your pulse as you hold pressure. 2. Lift your finger after 5 minutes to see if the bleeding has stopped. 3. Once the bleeding has stopped, gently wipe the wrist area clean with a bandage. * If the bleeding from your wrist does not stop after 10 minutes, or if there is a large amount of bleeding or spurting, call 911 (do not drive yourself to the hospital). SKIN IRRITATION: * You may experience some redness and/or swelling in the area where radiation was administered. If any skin irritation occurs, please contact your family physician. FOLLOW UP VISIT: Keep any scheduled doctor appointments.
--- NOTE | 2017-01-21 10:21 | Cardiology Follow-Up ---
Subjective Date of Service: Jan 21, 2017. Pt evaluation today including: conversation w/ patient, physical exam, chart review, lab review, review of inpatient medication list, conversation w/ attending History of Present Illness He denies angina, chest pain, syncope, near-syncope, palpitations, bleeding. He has ambulated in the hallways and has tolerated it well without exertional symptoms. Review of systems: As above. Social History Smoking Status: Current Every Day Smoker History of Alcohol Use: No Medications Current Inpatient Medications Medications (Trade) Dose Ordered Sig/Dylan Route Start Time Stop Time Status Last Admin Dose Admin Acetaminophen (Tylenol Tab) 650 mg Q4H PRN PO 01/18/17 15:30 02/17/17 15:29 Zolpidem Tartrate (Ambien Tab) 5 mg HSZ PRN PO 01/18/17 15:30 02/17/17 15:29 Nitroglycerin (Nitroglycerin 2% Oint) 1 inch Q6H EXT 01/18/17 22:00 02/17/17 21:59 01/21/17 04:52 1 INCH Morphine Sulfate (MoRPHine SULFATE INJ) 2 mg Q30M PRN IV 01/18/17 15:30 02/01/17 15:29 Lisinopril (Zestril Tab) 40 mg DAILY PO 01/19/17 09:00 02/18/17 08:59 01/21/17 07:42 40 MG Miscellaneous Information (Order Awaiting Action) 1 ea QS N/A 01/19/17 00:00 02/18/17 00:00 01/21/17 00:00 1 EA Aspirin (Aspirin Chew) 81 mg QAM PO 01/19/17 09:00 02/18/17 08:59 01/21/17 07:41 81 MG Ondansetron HCl (Zofran Inj) 4 mg Q6H PRN IV 01/18/17 15:45 02/17/17 15:44 Insulin Aspart (novoLOG ASPART) SLIDING SCALE If C... ACHS SC 01/18/17 21:00 02/17/17 20:59 01/21/17 07:45 7 UNITS Glucose (Glucose 40% Gel) UD PRN PO 01/18/17 17:45 02/17/17 17:44 Glucose (Glucose Chew Tab) 1 tabs UD PRN PO 01/18/17 17:45 02/17/17 17:44 Dextrose (Dextrose 50% 50ML Syringe) 50 ml UD PRN IV 01/18/17 17:45 02/17/17 17:44 Glucagon (Glucagon Inj) 1 mg UD PRN SQ 01/18/17 17:45 02/17/17 17:44 Atorvastatin Calcium (Lipitor Tab) 80 mg HS PO 01/19/17 21:00 02/18/17 20:59 01/20/17 21:11 80 MG Atropine Sulfate (Atropine Sulfate 0.1MG/Ml Inj) 0.5 mg ONE PRN IV 01/19/17 16:00 02/18/17 15:59 Clopidogrel Bisulfate (plAVix TAB) 75 mg QAM PO 01/20/17 09:00 02/19/17 08:59 01/21/17 07:41 75 MG Carvedilol (Coreg Tab) 6.25 mg BID PO 01/20/17 21:00 02/19/17 20:59 01/21/17 07:42 6.25 MG Objective Vital Signs Past 12 Hours Date Time Temp Pulse Resp B/P (MAP) Pulse Ox O2 Delivery O2 Flow Rate FiO2 01/21/17 09:47 36.8 64 18 96 Room Air 01/21/17 08:00 Room Air 01/21/17 07:37 36.8 64 18 148/84 (105) 96 Room Air 01/21/17 05:00 Room Air 01/21/17 04:23 36.9 66 18 154/73 (100) 96 Room Air 01/21/17 00:08 37.0 71 18 148/75 (99) 94 Room Air 01/21/17 00:00 Room Air Last Recorded Weight-Kilograms: 89.000 Physical Exam Gen.: No acute distress. Alert and oriented. HEENT: Anicteric sclera. Neck: No JVD. Cardiac: No ventricular heave. Regular. Normal S1-S2. No murmurs, rubs, or gallops. Pulmonary: Clear to auscultation bilaterally without wheezes, rales, or rhonchi. Abdomen: Soft, nontender, nondistended, with normoactive bowel sounds. No bruits noted. Extremities: 2+ right radial. Right radial cath site is clean, dry and intact without erythema. 2+ posterior tibialis pulses bilaterally. Trace bilateral pedal edema. No cyanosis. Psychiatric: Affect appears appropriate. Data Laboratory Results: Last 24 Hours Test 01/20/17 10:58 01/20/17 16:18 01/20/17 17:49 01/20/17 20:52 Bedside Glucose 177 mg/dl 219 mg/dl 127 mg/dl Troponin I 11.200 ng/ml Test 01/21/17 06:01 01/21/17 06:45 White Blood Count 5.93 K/uL Red Blood Count 4.41 M/uL Hemoglobin 13.0 g/dL Hematocrit 39.6 % Mean Corpuscular Volume 89.8 fL Mean Corpuscular Hemoglobin 29.5 pg Mean Corpuscular Hemoglobin Concent 32.8 g/dl Platelet Count 221 K/uL Mean Platelet Volume 10.9 fL Neutrophils (%) (Auto) 60.7 % Lymphocytes (%) (Auto) 24.3 % Monocytes (%) (Auto) 10.8 % Eosinophils (%) (Auto) 3.4 % Basophils (%) (Auto) 0.5 % Neutrophils # (Auto) 3.60 K/uL Lymphocytes # (Auto) 1.44 K/uL Monocytes # (Auto) 0.64 K/uL Eosinophils # (Auto) 0.20 K/uL Basophils # (Auto) 0.03 K/uL RDW Standard Deviation 44.6 fL RDW Coefficient of Variation 13.5 % Immature Granulocyte % (Auto) 0.3 % Immature Granulocyte # (Auto) 0.02 K/uL Prothrombin Time 11.0 SECONDS Prothromb Time International Ratio 1.0 Activated Partial Thromboplast Time 27.1 SECONDS Partial Thromboplastin Ratio 1.0 Sodium Level 143 mmol/L Potassium Level 4.0 mmol/L Chloride Level 108 mmol/L Carbon Dioxide Level 30 mmol/L Anion Gap 5.0 mmol/L Blood Urea Nitrogen 14 mg/dl Creatinine 0.81 mg/dl Est Creatinine Clear Calc Drug Dose 107.2 ml/min Estimated GFR () 108.9 Estimated GFR (Non- 93.9 BUN/Creatinine Ratio 17.8 Random Glucose 151 mg/dl Estimated Average Glucose 186 mg/dl Hemoglobin A1c 8.1 % Calcium Level 9.2 mg/dl Magnesium Level 2.2 mg/dl Total Bilirubin 0.9 mg/dl Direct Bilirubin 0.2 mg/dl Aspartate Amino Transf (AST/SGOT) 18 U/L Alanine Aminotransferase (ALT/SGPT) 23 U/L Alkaline Phosphatase 93 U/L Total Protein 6.5 gm/dl Albumin 3.3 gm/dl Bedside Glucose 174 mg/dl Telemetry reviewed: Had a brief atrial run of approximately 10-12 beats. He had a 9 beat run of accelerated idioventricular arrhythmia. Otherwise, sinus rhythm. Assessment and Plan ASSESSMENT/PLAN: 1. NSTEMI: Underwent proximal LAD PCI. Continue aspirin 81 mg daily indefinitely. Continue Plavix 75 mg daily for at least 1 year. Continue beta- sarmad as tolerated. Continue high-intensity statin therapy and OSMEL- inhibitor. Recommend cardiac rehabilitation upon discharge. He is asymptomatic. He is tolerating ambulation. 2. CAD: LAD PCI as mentioned above. Medical therapy as above. Can continue to titrate beta-sarmad and other antihypertensive agents to better control blood pressure over time. 3. Hypertension: Blood pressure remains mildly elevated. He has been on carvedilol for less than 24 hours. Continue current dose for now. This can be further titrated if heart rate allows as an outpatient. If he remains hypertensive, could also restart amlodipine. Continue OSMEL-inhibitor. 4. Tobacco abuse: Once again discussed the importance of smoking cessation. He states that he will not restart smoking when he goes home. His significant other had removed all ashtrays. 5. Paroxysmal Ventricular Tachycardia: Likely due to ischemic heart disease in the setting of NSTEMI. Continue betablocker. Monitor electrolytes. This occur during the first 24 hours of his hospital stay. 6. Atrial tachycardia and AIVR: He is asymptomatic. Continue current regimen. He had only 1 episode of each in the past 24 hours and there were nonsustained. 7. Disposition: Follow-up with Cardiology in 1-2 weeks. Appointment is being made by Cardiology office at this time. Recommend cardiac rehabilitation as an outpatient as well. He was instructed to call [phone] for angina. Can discharge with nitroglycerin to be used as needed.
== END 2017-01-21 10:17 | disposition home or self-care (01) | DRG 247 ==
LOC: C.EDB 13:39 → C.MED 15:27 → ENRESERV 15:44 → C.2T 01-19 16:00
PROVIDERS: ADMIT Hospitalist; ATTEND Internal Medicine
PROC: B2101ZZ Fluoroscopy of Single Coronary Artery using Low Osmolar Contrast (ICD-10-PCS; 2017-01-19)
PROC: 4A033BC Measurement of Arterial Pressure, Coronary, Percutaneous Approach (ICD-10-PCS; 2017-01-19)
PROC: 027034Z Dilation of Coronary Artery, One Artery with Drug-eluting Intraluminal Device, Percutaneous Approach (ICD-10-PCS; 2017-01-19)
PROC: B2111ZZ Fluoroscopy of Multiple Coronary Arteries using Low Osmolar Contrast (ICD-10-PCS; principal; 2017-01-19 13:26)
PROC: 4A023N7 Measurement of Cardiac Sampling and Pressure, Left Heart, Percutaneous Approach (ICD-10-PCS; principal; 2017-01-19 13:26)
DX: I21.4 Non-ST elevation (NSTEMI) myocardial infarction (principal); I47.2 Ventricular tachycardia; I47.1 Supraventricular tachycardia; I50.32 Chronic diastolic (congestive) heart failure; I25.10 Atherosclerotic heart disease of native coronary artery without angina pectoris; I11.0 Hypertensive heart disease with heart failure; E78.5 Hyperlipidemia, unspecified; E11.9 Type 2 diabetes mellitus without complications; F17.210 Nicotine dependence, cigarettes, uncomplicated; N40.0 Benign prostatic hyperplasia without lower urinary tract symptoms; Z79.84 Long term (current) use of oral hypoglycemic drugs; Z79.899 Other long term (current) drug therapy

== ENCOUNTER → 2017-02-20 | Outpatient (CLI) | payer OTHER ==
[~2017-02-20] MED LIST changes: +ALFU10TA30 PO; +ASPCH81 PO; -CPR500 PO; +CRG625 PO; +DUTA0.5C PO; -GLC500; -LISI20TA; +LISI40TA PO; +LPT40 PO; +METF-841 PO; -MULT-506; +PLV75 PO; -[UNRECOGNIZED DRUG - OTHER]
[2017-02-20 17:24] LABS: HEMATOCRIT 40.8 % (42-52); MEAN CELL VOLUME 89.3 fL (80-100); MEAN CORPUSCULAR HGB CONC 33.6 g/dl (32-36); MEAN PLATELET VOLUME 10.2 fL (7.4-10.4); PLATELET COUNT 225 K/uL (130-400); RED BLOOD COUNT 4.57 M/uL (4.7-6.1); WHITE BLOOD COUNT 5.75 K/uL (4.8-10.8)
[2017-02-20 18:25] LABS: ALT/SGPT 86 U/L (12-78); AST/SGOT 35 U/L (15-37); BLOOD UREA NITROGEN 18 mg/dl (7-18); BUN/CREATININE RATIO 21.5 (10-20); CALCIUM 9.3 mg/dl (8.5-10.1); CARBON DIOXIDE 29 mmol/L (21-32); CHLORIDE 101 mmol/L (98-107); CREATININE 0.82 mg/dl (0.60-1.40); GLUCOSE 230 mg/dl (70-99); POTASSIUM 4.4 mmol/L (3.5-5.1); SODIUM 136 mmol/L (136-145)
== END | disposition home or self-care (01) ==
LOC: C.LABPVFM 10:54
PROVIDERS: ATTEND Internal Medicine Cardiovascular Disease
DX: I10 Essential (primary) hypertension (principal); E78.5 Hyperlipidemia, unspecified; I25.10 Atherosclerotic heart disease of native coronary artery without angina pectoris; I47.2 Ventricular tachycardia; I21.4 Non-ST elevation (NSTEMI) myocardial infarction

== ENCOUNTER → 2017-03-11 | Outpatient (CLI) | payer OTHER ==
[2017-03-11 12:44] LABS: ALT/SGPT 74 U/L (12-78); AST/SGOT 22 U/L (15-37); BLOOD UREA NITROGEN 17 mg/dl (7-18); BUN/CREATININE RATIO 20.9 (10-20); CALCIUM 9.5 mg/dl (8.5-10.1); CARBON DIOXIDE 28 mmol/L (21-32); CHLORIDE 105 mmol/L (98-107); CREATININE 0.82 mg/dl (0.60-1.40); GLUCOSE 269 mg/dl (70-99); SODIUM 139 mmol/L (136-145)
[2017-03-11 12:46] LABS: ALB/GLOB RATIO 1.1 (0.9-2); ALKALINE PHOSPHATASE 106 U/L (45-117)
== END | disposition home or self-care (01) ==
LOC: C.LABPVFM 09:37
PROVIDERS: ATTEND Family Medicine
DX: Z00.00 Encounter for general adult medical examination without abnormal findings (principal); R79.89 Other specified abnormal findings of blood chemistry; E11.9 Type 2 diabetes mellitus without complications

== ENCOUNTER 2017-05-09 08:09 | Inpatient (IN) | payer OTHER ==
[~2017-05-09] VITALS: Ht 188 cm; Wt 90.1 kg
[2017-05-09] VITALS (9 sets, daily range): BP systolic 126–157; BP diastolic 65–82; PULSE 68–113; TEMP 36.5–37.8; O2SAT 91–99; Ht 188 cm; Wt 90.1 kg
[~2017-05-09 08:09] MED LIST changes: +ALFU10TA2 PO; -ALFU10TA30 PO
[2017-05-09] MEDS ORDERED: METF1TAB53 PO (08:15)
[2017-05-09] MEDS ORDERED: ASPI81TA28 PO (08:15)
[2017-05-09] MEDS ORDERED: CLOP1TAB15 PO (08:15)
[2017-05-09] MEDS ORDERED: CARV6.25 PO (08:15)
[2017-05-09] MEDS ORDERED: ATOR-24 PO (08:15)
--- NOTE | 2017-05-09 08:36 | EMERGENCY ROOM VISIT NOTE ---
History Report prepared by Adriana: Gabriel Douglass Under the Supervision of: Dr. Naren Green M.D. First contact with patient: 08:28 Stated Complaint: BREATHING DIFFICULTY History of Present Illness The patient is a 67 year old male diabetic who presents to the Emergency Room with complaints of persistent breathing difficulties that began upon waking this morning. Per the patient's brother, the patient called him around an hour and a half ago saying that he was short of breath and could not breathe. Per the nursing staff, the patient's oxygen saturation was in the 50s prior to arrival. The patient denies any abdominal pain or cough. He states that he felt fine going to bed last night. The patient says that his symptoms do not feel like his previous heart attack. 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 Review of Systems All systems have been listed, reviewed, and are negative other than those previously mentioned. Please see Additional Medical History Sheet. Past Medical & Surgical Medical Problems: (1) ACS (acute coronary syndrome) (2) Acute diastolic (congestive) heart failure (3) BPH (benign prostatic hyperplasia) (4) Diabetes (5) HTN (hypertension) Family History No pertinent family history Social History Smoking Status: Current Every Day Smoker Drug Use: none Housing Status: lives with family Occupation Status: employed Current/Historical Medications Scheduled Aspirin (Aspirin Ec), 81 MG PO DAILY Atorvastatin (Lipitor), 80 MG PO HS Carvedilol (Carvedilol), 25 MG PO BID Clopidogrel (Plavix), 75 MG PO DAILY Finasteride (Proscar), 5 MG PO DAILY Lisinopril (Zestril), 40 MG PO DAILY Metformin Hcl (Glucophage Ext Rel), 500 MG PO BID Nitroglycerin (Nitrostat), 0.4 MG UT PRN Tamsulosin HCl (Tamsulosin HCl), 0.4 MG PO DAILY Allergies Coded Allergies: No Known Allergies (Unverified , 01/18/17) Physical Exam Vital Signs Date Time Temp Pulse Resp B/P (MAP) Pulse Ox O2 Delivery O2 Flow Rate FiO2 05/09/17 09:58 97 24 135/82 92 Nebulizer 7.0 05/09/17 08:55 113 18 99 Non-Rebreather 13.0 05/09/17 08:44 79 Room Air 05/09/17 08:26 104 05/09/17 08:15 99 Nasal Cannula 15.0 Non-Rebreather 05/09/17 08:15 79 Room Air 05/09/17 08:15 36.7 104 32 207/126 79 Room Air Physical Exam GENERAL: Patient awake, alert, oriented x 3. Patient follows commands. Patient does not appear toxic. Patient is adequately hydrated and well- nourished. SKIN: No erythema, pallor, cyanosis or rash HEENT: Normal head, pupils equal, reactive to light and accommodation. Ears normal. Oral cavity and posterior pharynx appear normal. Neck: Without adenopathy, no neck vein distention. LUNGS: There are wheezes bilaterally. no rales, no rhonchi. HEART: Tachycardic heart rate and regular rhythm. No murmurs. No gallops. No rubs ABDOMEN: Soft and nontender abdomen. No masses, no rebound, no hepatomegaly or splenomegaly. EXTREMITIES: Stasis changes to both lower legs. No significant edema. No calf or thigh tenderness. NEUROLOGIC: Cranial nerves II-XII within normal limits. No gross motor sensory function deficits. Medical Decision & Procedures ER Provider Diagnostic Interpretation: X ray results are stated below per my interpretation and the radiologist's interpretation. CHEST ONE VIEW PORTABLE CLINICAL HISTORY: sob dyspnea COMPARISON STUDY: 01/18/2017 FINDINGS: Congestive heart failure. Heart is moderately enlarged. Diaphragms smooth. IMPRESSION: Congestive heart failure The above report was generated using voice recognition software. It may contain grammatical, syntax or spelling errors. Electronically signed by: Abner Hobbs M.D. 05/09/2017 8:57 AM Dictated Date/Time: 05/09/2017 8:57 AM Laboratory Results 05/09/17 08:30 Red Blood Count 4.93, Mean Corpuscular Volume 92.9, Mean Corpuscular Hemoglobin 30.2, Mean Corpuscular Hemoglobin Concent 32.5, Mean Platelet Volume 11.0, Neutrophils (%) (Auto) 64.3, Lymphocytes (%) (Auto) 25.0, Monocytes (%) (Auto) 6.3, Eosinophils (%) (Auto) 3.7, Basophils (%) (Auto) 0.4, Neutrophils # (Auto) 8.77, Lymphocytes # (Auto) 3.41, Monocytes # (Auto) 0.86, Eosinophils # (Auto) 0.50, Basophils # (Auto) 0.06 05/09/17 08:30 Test 05/09/17 08:30 05/09/17 09:06 White Blood Count 13.64 K/uL (4.8-10.8) Red Blood Count 4.93 M/uL (4.7-6.1) Hemoglobin 14.9 g/dL (14.0-18.0) Hematocrit 45.8 % (42-52) Mean Corpuscular Volume 92.9 fL (80-100) Mean Corpuscular Hemoglobin 30.2 pg (25-34) Mean Corpuscular Hemoglobin Concent 32.5 g/dl (32-36) Platelet Count 280 K/uL (130-400) Mean Platelet Volume 11.0 fL (7.4-10.4) Neutrophils (%) (Auto) 64.3 % Lymphocytes (%) (Auto) 25.0 % Monocytes (%) (Auto) 6.3 % Eosinophils (%) (Auto) 3.7 % Basophils (%) (Auto) 0.4 % Neutrophils # (Auto) 8.77 K/uL (1.4-6.5) Lymphocytes # (Auto) 3.41 K/uL (1.2-3.4) Monocytes # (Auto) 0.86 K/uL (0.11-0.59) Eosinophils # (Auto) 0.50 K/uL (0-0.5) Basophils # (Auto) 0.06 K/uL (0-0.2) RDW Standard Deviation 45.4 fL (36.4-46.3) RDW Coefficient of Variation 13.4 % (11.5-14.5) Immature Granulocyte % (Auto) 0.3 % Immature Granulocyte # (Auto) 0.04 K/uL (0.00-0.02) Anion Gap 10.0 mmol/L (3-11) Est Creatinine Clear Calc Drug Dose 78.6 ml/min Estimated GFR () 82.1 Estimated GFR (Non- 70.9 BUN/Creatinine Ratio 16.5 (10-20) Calcium Level 8.8 mg/dl (8.5-10.1) Total Bilirubin 0.7 mg/dl (0.2-1) Aspartate Amino Transf (AST/SGOT) 39 U/L (15-37) Alanine Aminotransferase (ALT/SGPT) 51 U/L (12-78) Alkaline Phosphatase 143 U/L (45-117) Pro-B-Type Natriuretic Peptide 3206 pg/ml (0-900) Total Protein 7.9 gm/dl (6.4-8.2) Albumin 3.5 gm/dl (3.4-5.0) Globulin 4.4 gm/dl (2.5-4.0) Albumin/Globulin Ratio 0.8 (0.9-2) Beta-Hydroxybutyric Acid 1.70 mg/dL (0.2-2.81) Prothrombin Time 11.4 SECONDS (9.0-12.0) Prothromb Time International Ratio 1.1 (0.9-1.1) Activated Partial Thromboplast Time 23.8 SECONDS (21.0-31.0) Partial Thromboplastin Ratio 0.9 Laboratory results as stated above per my review. Medications Administered Medications (Trade) Dose Ordered Sig/Dylan Route Start Time Stop Time Status Last Admin Dose Admin Albuterol/ Ipratropium (Duoneb) 12 ml ONE ONCE INH 05/09/17 08:45 05/09/17 08:46 DC 05/09/17 08:45 12 ML Furosemide (Lasix Inj) 40 mg NOW STAT IV 05/09/17 09:03 05/09/17 09:06 DC 05/09/17 09:14 40 MG Nitroglycerin (Nitroglycerin 2% Oint) 2 inch STK-MED ONCE .ROUTE 05/09/17 09:12 05/09/17 09:13 DC 05/09/17 09:16 2 INCH Insulin Human Regular (novoLIN-R U-100 PER UNIT) 10 units NOW STAT SC 05/09/17 09:58 05/09/17 10:00 DC 05/09/17 09:58 10 UNITS ECG Indication: SOB/dyspnea Rate (beats per minute): 106 Rhythm: sinus tachycardia Findings: PVC, no acute ischemic change, other (normal axis) ED Course 827: Past medical records reviewed. The patient was evaluated in room B6. A complete history and physical examination was performed. 0845: Ordered Duoneb 12 ml INH. 0900: I reevaluated the patient and his blood pressure is better, and he seems to be breathing slightly better. The patient verbally expressed understanding and agreement of the treatment plan. The patient will be evaluated for further treatment. 0903: Ordered Lasix Inj 40 mg IV. 15: Ordered Nitroglycerin 2% Oint 2 inch EXT. 911: I discussed the patient with Dr. Bennett BAR gang head saw operator - he will evaluate the patient for further treatment. Medical Decision I considered multiple diagnoses including PE, pneumonia, congestive heart failure. The patient is here with extreme shortness of breath. He appears very pale, diaphoretic and dyspneic on arrival. Multiple labs, EKG and imaging were obtained. Please see above. D-dimer is elevated to 477. Troponin is elevated to 0.07. Chest x-ray reveals congestive failure bordering on pulmonary edema. The patient was given IV Lasix and Nitropaste. Prior to that the patient had been given a breathing treatment. The patient did improve while here in the ED. The patient will require further evaluation in the hospital. I discussed care with the patient, significant other and the hospitalist. Medication Reconcilliation Current Medication List: was personally reviewed by me Blood Pressure Screening Patient's blood pressure: Elevated blood pressure Blood pressure disposition: Referred to PCP Consults Time Called: 909 Consulting Physician: Dr. Bennett BAR gang head saw operator Returned Call: [phone] I discussed the patient with Dr. Bennett BAR gang head saw operator - he will evaluate the patient for further treatment. Impression Primary Impression: Pulmonary edema Scribe Attestation The scribe's documentation has been prepared under my direction and personally reviewed by me in its entirety. I confirm that the note above accurately reflects all work, treatment, procedures, and medical decision making performed by me. Departure Information Dispostion Being Evaluated By Hospitalist Referrals Jr Bergeron M.D. (PCP) Problem Qualifiers Primary Impression: Pulmonary edema Chronicity: acute Qualified Codes: J81.0 - Acute pulmonary edema
[2017-05-09] MEDS ORDERED: ALBUT/IPRATROP 3MG/0.5MG NEB 3 ML VIAL INH ONE (08:45)
[2017-05-09 08:57] LABS: BASO % 0.4 %; BASO ABS # 0.06 K/uL (0-0.2); COMPLETE YES; EOS % 3.7 %; HEMATOCRIT 45.8 % (42-52); IG% 0.3 %; LYMPH ABS # 3.41 K/uL (1.2-3.4); MEAN CELL VOLUME 92.9 fL (80-100); MEAN CORPUSCULAR HEMOGLOBIN 30.2 pg (25-34); MEAN CORPUSCULAR HGB CONC 32.5 g/dl (32-36); MONO % 6.3 %; NEUT % 64.3 %; PLATELET COUNT 280 K/uL (130-400); RED BLOOD COUNT 4.93 M/uL (4.7-6.1); WHITE BLOOD COUNT 13.64 K/uL (4.8-10.8)
--- NOTE | 2017-05-09 08:58 | DIAGNOSTIC IMAGING REPORT ---
CHEST ONE VIEW PORTABLE CLINICAL HISTORY: sob dyspnea COMPARISON STUDY: 01/18/2017 FINDINGS: Congestive heart failure. Heart is moderately enlarged. Diaphragms smooth. IMPRESSION: Congestive heart failure The above report was generated using voice recognition software. It may contain grammatical, syntax or spelling errors. Electronically signed by: Abner Hobbs M.D. 05/09/2017 8:57 AM Dictated Date/Time: 05/09/2017 8:57 AM
[2017-05-09] MEDS ORDERED: FUROSEMIDE 40 MG/4 ML VIAL IV STA (09:03)
[2017-05-09] MEDS ORDERED: NITROGLYCERIN OINT 2% 1GM PACKET ONE (09:12)
[2017-05-09] MEDS ORDERED: NITROGLYCERIN OINT 2% 1GM PACKET EXT ONE (09:15)
[2017-05-09 09:27] LABS: ALB/GLOB RATIO 0.8 (0.9-2); BUN/CREATININE RATIO 16.5 (10-20); CALCIUM 8.8 mg/dl (8.5-10.1); CREATININE 1.09 mg/dl (0.60-1.40); POTASSIUM 4.1 mmol/L (3.5-5.1)
[2017-05-09 09:33] LABS: INR 1.1 (0.9-1.1); PARTIAL THROMBOPLASTIN RATIO 0.9; PROTHROMBIN TIME (PATIENT) 11.4 SECONDS (9.0-12.0)
[2017-05-09 09:41] LABS: BETA-HYDROXYBUTYRATE 1.7 mg/dL (0.2-2.81)
[2017-05-09] MEDS ORDERED: NovoLIN-R INSULIN PER UNIT CHARGE SC STA (09:58)
[2017-05-09] MEDS ORDERED: MAGNESIUM HYDROXIDE SUSP 30 ML UDC PO PRN (10:45)
[2017-05-09] MEDS ORDERED: ALUMINUM/MAGNESIUM/SIMETH (MAALOX MAX) 30 ML UDC PO PRN (10:45)
[2017-05-09] MEDS ORDERED: ACETAMINOPHEN 325 MG TAB PO PRN (10:45)
[2017-05-09] MEDS ORDERED: ONDANSETRON INJ 2 MG/ML 2 ML VIAL IV PRN (10:45)
[2017-05-09] MEDS ORDERED: GLUCAGON FOR INJ 1 MG VIAL SQ PRN (10:45)
[2017-05-09] MEDS ORDERED: DEXTROSE 50% 50 ML SYR IV PRN (10:45)
[2017-05-09] MEDS ORDERED: GLUCOSE 40% GEL 15 GM TUBE PO PRN (10:45)
[2017-05-09] MEDS ORDERED: POLYETHYLENE (MIRALAX) 17 GM PACK PO PRN (10:45)
[2017-05-09] MEDS ORDERED: GLUCOSE 10 TABS/TUBE PO PRN (10:45)
[2017-05-09] MEDS ORDERED: FLM4 PO (11:00)
[2017-05-09] MEDS ORDERED: FINA5TAB PO (11:00)
[2017-05-09] MEDS ORDERED: CRG25 PO (11:00)
[2017-05-09] MEDS ORDERED: NTRGSL/4 UT (11:00)
[2017-05-09] MEDS ORDERED: INSULIN GLARGINE SOLOSTAR 100 UNITS/ML 3 ML PEN SC ONE (11:06)
[2017-05-09] MEDS ORDERED: NITROGLYCERIN 0.4 MG SL PER TAB CHARGE UT SCH (11:15)
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
[2017-05-09] MEDS ORDERED: OPTIRAY 320 IV PRN (11:30)
[2017-05-09] MEDS: ALBUT/IPRATROP 3MG/0.5MG NEB 3 ML VIAL INH SCH ×3 (12:00→19:30)
--- NOTE | 2017-05-09 12:39 | DIAGNOSTIC IMAGING REPORT ---
(CHEST FOR PE) ANGIO WITH CT DOSE: 375.60 mGy.cm HISTORY: Chest pain dyspnea TECHNIQUE: Multiaxial CT images of the chest were performed following the intravenous administration of contrast to evaluate the pulmonary arteries. Maximal intensity projection images were also obtained. A dose lowering technique was utilized adhering to the principles of ALARA. COMPARISON STUDY: None. FINDINGS: Small bilateral pleural effusions. Mild bibasilar atelectasis. Vasculature enhances appropriately. No significant filling defects are appreciated. Upper lungs are considered clear. Baseline interstitial change is noted throughout both hemithoraces. There is a focus of round atelectasis lingular aspect of the left lung base. IMPRESSION: 1. Study is negative for pulmonary embolus. 2. Bilateral pleural effusions with bibasilar atelectatic and or infiltrative change. The above report was generated using voice recognition software. It may contain grammatical, syntax or spelling errors. Electronically signed by: Abner Hobbs M.D. 05/09/2017 12:38 PM Dictated Date/Time: 05/09/2017 12:35 PM
[2017-05-09] MEDS: INSULIN ASPART 100 UNITS/ML 3 ML PEN SC SCH ×3 (12:53→21:00)
[2017-05-09] MEDS ORDERED: INSULIN GLARGINE SOLOSTAR 100 UNITS/ML 3 ML PEN SC STA (14:37)
--- NOTE | 2017-05-09 16:17 | ECHOCARDIOGRAM REPORT ---
*NOTICE TO RECEIVING [employer] This information is strictly Confidential and protected under [place] law. [place] law prohibits you from making any further disclosure of this information unless further disclosure is expressly permitted by the written consent of the person to whom it pertains or is authorized by law. A general authorization for the release of medical or other information is not sufficient for this purpose. Hospital accepts no responsibility if the information is made available to any other person, INCLUDING THE PATIENT. Interpretation Summary * Name: BARBARA WISE Study Date: 05/09/2017 02:49 PM BP: 157/82 mmHg * Patient Location: C.2T\S\S230\S\2 HR: 87 * : 1950 (M/d/yyyy) Gender: Male Height: 74 in * Age: 67 yrs Ethnicity: [place] Weight: 202 lb * Ordering Physician: Susan Verduzco * Referring Physician: Self, Referred * Performed By: Hyacinth Mcfarlane RDCS * * Reason For Study: CHF * BSA: 2.2 m2 * -- Conclusions -- * 1. Mildly dilated left ventricle with mildly reduced systolic function. EF 45-50%. Mild global hypokinesis. Mild concentric left ventricular hypertrophy. Type 1 diastolic dysfunction. * 2. No significant valvular abnormalities visualized. * 3. Technically difficult study. * 4. Compared to prior study on 01/19/2017, apex no longer appears akinetic. Procedure Details * A complete two-dimensional transthoracic echocardiogram was performed (2D, M-mode, Doppler and color flow Doppler). Left Ventricle * Mildly dilated left ventricle with mildly reduced systolic function. EF 45-50%. Mild global hypokinesis. Mild concentric left ventricular hypertrophy. Type 1 diastolic dysfunction. Right Ventricle * The right ventricle is normal in size and function. * The right ventricular systolic function is normal as assessed by tricuspid annular plane systolic excursion (TAPSE) (normal >1.5 cm). Atria * The left atrium is borderline dilated. * Right atrial size is normal. * There is no evidence of atrial septal defect, but resolution does not allow assessment for a patent foramen ovale. Mitral Valve * The mitral valve leaflets appear normal. There is no evidence of stenosis, fluttering, or prolapse. * There is trace mitral regurgitation. Tricuspid Valve * The tricuspid valve is not well visualized, but is grossly normal. * There is no tricuspid stenosis. * There is trace tricuspid regurgitation. Aortic Valve * The aortic valve is normal in structure and function. * No hemodynamically significant valvular aortic stenosis. * No aortic regurgitation is present. Pulmonic Valve * The pulmonary valve is inadequately visualized, but the Doppler data is adequate for interpretation. * There is no pulmonic valvular stenosis. * There is no pulmonic valvular regurgitation. Great Vessels * The aortic root is normal size. Pericardium/Pleural * There is no pericardial effusion. Great Vessels * Normal inferior vena cava size and collapsability with sniff indicates a normal right atrial pressure of 3 mmHg MMode 2D Measurements and Calculations IVSd 1.3 cm LVIDd 5.5 cm LVIDs 4.0 cm LVPWd 1.3 cm IVS/LVPW 1.0 FS 27.6 % EDV(Teich) 149.9 ml ESV(Teich) 70.4 ml EF(Teich) 53.0 % EDV(cubed) 170.1 ml ESV(cubed) 64.5 ml EF(cubed) 62.1 % LV mass(C)d 312.3 grams LV mass(C)dI 143.1 grams/m\S\2 SV(Teich) 79.5 ml SI(Teich) 36.4 ml/m\S\2 SV(cubed) 105.6 ml SI(cubed) 48.4 ml/m\S\2 Ao root diam 3.7 cm Ao root area 10.5 cm\S\2 ACS 2.2 cm LA dimension 4.0 cm asc Aorta Diam 2.8 cm LA/Ao 1.1 LVOT diam 2.0 cm LVOT area 3.2 cm\S\2 LVAd ap4 44.5 cm\S\2 LVLd ap4 9.4 cm EDV(MOD-sp4) 174.1 ml EDV(sp4-el) 179.0 ml LVAs ap4 30.0 cm\S\2 LVLs ap4 8.2 cm ESV(MOD-sp4) 96.2 ml ESV(sp4-el) 93.5 ml EF(MOD-sp4) 44.7 % EF(sp4-el) 47.8 % LVAd ap2 42.5 cm\S\2 LVLd ap2 8.9 cm EDV(MOD-sp2) 167.6 ml EDV(sp2-el) 171.6 ml LVAs ap2 29.0 cm\S\2 LVLs ap2 7.9 cm ESV(MOD-sp2) 90.4 ml ESV(sp2-el) 90.8 ml EF(MOD-sp2) 46.0 % EF(sp2-el) 47.1 % LVLd %diff -3.18 % EDV(MOD-bp) 182.2 ml LVLs %diff -7.10 % ESV(MOD-bp) 89.5 ml EF(MOD-bp) 50.9 % SV(MOD-sp4) 77.9 ml SI(MOD-sp4) 35.7 ml/m\S\2 SV(MOD-sp2) 77.1 ml SI(MOD-sp2) 35.3 ml/m\S\2 SV(MOD-bp) 92.6 ml SI(MOD-bp) 42.4 ml/m\S\2 SV(sp4-el) 85.6 ml SI(sp4-el) 39.2 ml/m\S\2 SV(sp2-el) 80.8 ml SI(sp2-el) 37.0 ml/m\S\2 Doppler Measurements and Calculations MV E max dorota 47.1 cm/sec MV A max dorota 82.9 cm/sec MV E/A 0.57 MV dec time 0.20 sec Ao V2 max 99.0 cm/sec Ao max PG 3.9 mmHg Ao max PG (full) 0.81 mmHg TYREE(V,A) 2.9 cm\S\2 TYREE(V,D) 2.9 cm\S\2 LV V1 max PG 3.1 mmHg LV V1 max 88.3 cm/sec PA V2 max 97.7 cm/sec PA max PG 3.8 mmHg PA acc slope 570.7 cm/sec\S\2 PA acc time 0.15 sec RAP systole 3.0 mmHg PA pr(Accel) 12.5 mmHg
--- NOTE | 2017-05-09 16:37 | Cardiology Consultation ---
Cardiology Consultation Date of Consultation: May 09, 2017. Requesting Physician: Dr. Verduzco Attending Physician: Dr. Verduzco Reason for Consultation: Acute diastolic CHF Pt evaluation today including: conversation w/ patient, physical exam, chart review, lab review, review of studies, review of inpatient medication list, conversation w/ attending History of Present Illness Mr. Meyer is a very pleasant 67-year-old gentleman with a history significant for LAD NSTEMI s/p PCI, CAD, hypertension, dyslipidemia, and tobacco abuse. He was hospitalized on 01/18/2017 with NSTEMI and underwent LAD PCI. Peak troponin was 25.8. He had paroxysmal ventricular tachycardia within the first 24 hours of his hospital stay. Medications were adjusted. He also had brief runs of atrial tachycardia and AIVR. He has had the following studies/procedures: 1. Echo 01/19/2017: Mildly dilated LV with mildly reduced to low-normal systolic function. EF 50%. Akinetic apex. Type 1 diastolic dysfunction. No apical thrombus. Mild left atrial dilation. No significant valvular abnormalities. 2. Cardiac catheterization 01/19/2017: Proximal LAD 70% (FFR 0.78). Mid LAD 30 %. Proximal circumflex 20%. Mid circumflex luminal irregularities. Large OM2 proximal 30% and mid 30%. Large OM1 without CAD. Proximal RCA 50%. LVEDP 17. No aortic stenosis. Prox LAD 4 x 15 mm Resolute ADRIANA. He was admitted to the hospital earlier today after waking up short of breath. He woke up at approximately 5:00 a.m. and noted that he was short of breath. Shortness of breath continued to progressively worsen over time, throughout the morning. He noticed not only shortness of breath with exertion, but also at rest, including orthopnea. Standing outside in the cooler weather helped a little, but he continued to feel short of breath. There are reports stating that his initial oxygen saturation on room air was in the 50s%. He denied any angina, chest pain, syncope, near-syncope, palpitations, or edema. He admits that he had been eating hot dogs and pizza, high in sodium content, the night before. He states that he had significant improvement after nebulizer treatment. Dr. Verduzco also reports that he diuresed approximately 3 L in the emergency department but that family members discarded the urine and therefore it is not recorded in the chart. He feels nearly back to baseline currently. He denies melena, hematochezia, hematuria, or other bleeding. He states that he felt well yesterday without breathing difficulties. He has been compliant with medications other than atorvastatin due to the fact that he would sometimes forget to take the medication in the evening, before bed. Unfortunately, he started smoking again, smoking 2 or 3 cigarettes per day. He also admits to a mild cough, but no sputum production. Review of systems: As above and review of systems otherwise negative/ unremarkable. Past Medical/Surgical History 1. Benign hypertrophy of prostate 2. Hyperlipidemia ( 3. Hypertension (I10) 4. Nicotine dependence (F17.200) 5. NSTEMI, 6. Screening for hyperlipidemia (Z13.220) 7. Type 2 diabetes mellitus 8. CAD s/p LAD PCI Family History No known premature CAD. Social History Has smoked 1 pack per day and has smoked up to 2 packs per day in the past. He estimates smoking for at least 30-40 years. He quit smoking January of 2017, but recently restarted smoking 2-3 cigarettes daily. No alcohol or drugs. He is not . He lives with a female avionics mechanic, Elisabeth Vivar ([employer]). No children. 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 He is unaccompanied in his hospital room. Allergies Coded Allergies: No Known Allergies (Unverified , 01/18/17) Medications Current Inpatient Medications Medications (Trade) Dose Ordered Sig/Dylan Route Start Time Stop Time Status Last Admin Dose Admin Heparin Sodium (Porcine) (Heparin Sq 5000 Unit/0.5ml) 5,000 unit Q12H SQ 05/09/17 21:00 06/08/17 20:59 Acetaminophen (Tylenol Tab) 650 mg Q4H PRN PO 05/09/17 10:45 06/08/17 10:44 Al Hydrox/Mg Hydrox/Simethicone (Maalox Max Susp) 15 ml Q4H PRN PO 05/09/17 10:45 06/08/17 10:44 Magnesium Hydroxide (Milk Of Magnesia Susp) 30 ml Q12H PRN PO 05/09/17 10:45 06/08/17 10:44 Ondansetron HCl (Zofran Inj) 4 mg Q6H PRN IV 05/09/17 10:45 06/08/17 10:44 Polyethylene (Miralax Powder Packet) 17 gm DAILY PRN PO 05/09/17 10:45 06/08/17 10:44 Insulin Aspart (novoLOG ASPART) SLIDING SCALE If C... ACHS SC 05/09/17 11:00 06/08/17 10:59 05/09/17 12:53 11 UNITS Glucose (Glucose 40% Gel) 15-30 GRAMS 15 GRAMS... UD PRN PO 05/09/17 10:45 06/08/17 10:44 Glucose (Glucose Chew Tab) 4-8 Tablets 4 Tabl... UD PRN PO 05/09/17 10:45 06/08/17 10:44 Dextrose (Dextrose 50% 50ML Syringe) 25-50ML OF 50% DW IV FOR... UD PRN IV 05/09/17 10:45 06/08/17 10:44 Glucagon (Glucagon Inj) 1 mg UD PRN SQ 05/09/17 10:45 06/08/17 10:44 Furosemide 40 mg/ Syringe 4 ml @ 4 mls/min BID17 IV 05/09/17 17:00 06/08/17 16:59 Aspirin (Ecotrin Tab) 81 mg DAILY PO 05/10/17 09:00 06/09/17 08:59 Atorvastatin Calcium (Lipitor Tab) 80 mg HS PO 05/09/17 21:00 06/08/17 20:59 Carvedilol (Coreg Tab) 25 mg BID PO 05/09/17 21:00 06/08/17 20:59 Clopidogrel Bisulfate (plAVix TAB) 75 mg DAILY PO 05/10/17 09:00 06/09/17 08:59 Finasteride (Proscar Tab) 5 mg DAILY PO 05/10/17 09:00 06/09/17 08:59 Lisinopril (Zestril Tab) 40 mg DAILY PO 05/10/17 09:00 06/09/17 08:59 Nitroglycerin (Nitrostat Tab) 0.4 mg PRN UT 05/09/17 11:15 06/08/17 11:14 Tamsulosin HCl (Flomax Cap) 0.4 mg DAILY PO 05/10/17 09:00 06/09/17 08:59 Albuterol/ Ipratropium (Duoneb) 3 ml QIDR INH 05/09/17 12:00 06/08/17 11:59 Ioversol (Optiray 320) 100 ml UD PRN IV 05/09/17 11:30 05/13/17 11:29 Insulin Glargine (Lantus Solostar Pen) 15 units DAILY SC 05/10/17 09:00 06/09/17 08:59 Physical Exam Vital Signs Past 12 Hours Date Time Temp Pulse Resp B/P (MAP) Pulse Ox O2 Delivery O2 Flow Rate FiO2 05/09/17 16:00 92 Nasal Cannula 2.0 05/09/17 15:26 36.5 76 18 143/75 (97) 93 Nasal Cannula 3.0 05/09/17 12:00 92 Nasal Cannula 2.0 05/09/17 11:35 36.5 20 157/82 (107) 92 Nasal Cannula 2.0 05/09/17 11:18 36.4 05/09/17 11:11 87 20 131/84 95 Nasal Cannula 5.0 05/09/17 11:10 95 Nasal Cannula 5.0 05/09/17 09:58 97 24 135/82 92 Nebulizer 7.0 05/09/17 08:55 113 18 99 Non-Rebreather 13.0 05/09/17 08:44 79 Room Air 05/09/17 08:26 104 05/09/17 08:15 99 Nasal Cannula 15.0 Non-Rebreather 05/09/17 08:15 79 Room Air 05/09/17 08:15 36.7 104 32 207/126 79 Room Air Gen.: No acute distress. Alert and oriented. HEENT: Anicteric sclera. Neck: No appreciable JVD. No hepatojugular reflux. No bruits. Normal carotid upstrokes bilaterally. Cardiac: PMI was nondisplaced. No ventricular heave. Regular rate and rhythm. Normal S1-S2. No murmurs, rubs, or gallops. Pulmonary: Mild expiratory wheeze. Decreased breath sounds. Abdomen: Soft, nontender, nondistended, with normoactive bowel sounds. No bruits noted. Extremities: 2+ radial pulses bilaterally. 2+ posterior tibialis pulses bilaterally. No edema or cyanosis. Psychiatric: Affect appears appropriate. Back: Imbedded tick mid right back with only small localized erythema at the location of entry. Data Laboratory Results: Last 24 Hours Test 05/09/17 08:30 05/09/17 09:06 05/09/17 14:02 05/09/17 14:16 White Blood Count 13.64 K/uL Red Blood Count 4.93 M/uL Hemoglobin 14.9 g/dL Hematocrit 45.8 % Mean Corpuscular Volume 92.9 fL Mean Corpuscular Hemoglobin 30.2 pg Mean Corpuscular Hemoglobin Concent 32.5 g/dl Platelet Count 280 K/uL Mean Platelet Volume 11.0 fL Neutrophils (%) (Auto) 64.3 % Lymphocytes (%) (Auto) 25.0 % Monocytes (%) (Auto) 6.3 % Eosinophils (%) (Auto) 3.7 % Basophils (%) (Auto) 0.4 % Neutrophils # (Auto) 8.77 K/uL Lymphocytes # (Auto) 3.41 K/uL Monocytes # (Auto) 0.86 K/uL Eosinophils # (Auto) 0.50 K/uL Basophils # (Auto) 0.06 K/uL RDW Standard Deviation 45.4 fL RDW Coefficient of Variation 13.4 % Immature Granulocyte % (Auto) 0.3 % Immature Granulocyte # (Auto) 0.04 K/uL Sodium Level 136 mmol/L Potassium Level 4.1 mmol/L Chloride Level 102 mmol/L Carbon Dioxide Level 25 mmol/L Anion Gap 10.0 mmol/L Blood Urea Nitrogen 18 mg/dl Creatinine 1.09 mg/dl Est Creatinine Clear Calc Drug Dose 78.6 ml/min Estimated GFR () 82.1 Estimated GFR (Non- 70.9 BUN/Creatinine Ratio 16.5 Random Glucose 412 mg/dl Calcium Level 8.8 mg/dl Total Bilirubin 0.7 mg/dl Aspartate Amino Transf (AST/SGOT) 39 U/L Alanine Aminotransferase (ALT/SGPT) 51 U/L Alkaline Phosphatase 143 U/L Pro-B-Type Natriuretic Peptide 3206 pg/ml Total Protein 7.9 gm/dl Albumin 3.5 gm/dl Globulin 4.4 gm/dl Albumin/Globulin Ratio 0.8 Beta-Hydroxybutyric Acid 1.70 mg/dL Prothrombin Time 11.4 SECONDS Prothromb Time International Ratio 1.1 Activated Partial Thromboplast Time 23.8 SECONDS Partial Thromboplastin Ratio 0.9 Troponin I 0.358 ng/ml Bedside Glucose 309 mg/dl Test 05/09/17 14:19 05/09/17 14:36 ECG personally reviewed. ECG 05/09/2017 at 8:25 a.m.: Sinus tachycardia 106 bpm. Telemetry personally reviewed. No arrhythmia. Echocardiogram images personally reviewed. Echo 05/09/2017: Mildly dilated left ventricle with mildly reduced systolic function. EF 45-50%. Mild global hypokinesis. Mild LVH. Type 1 diastolic dysfunction. No significant valvular abnormalities. CT scan of the chest 05/09/2017: No PE per Radiology. Bilateral pleural effusions. Assessment & Plan ASSESSMENT/PLAN: 1. Acute diastolic CHF: He reportedly diuresed quite well, however urine output was reportedly not kept in the ER as family members discarded it. He does not appear significantly hypervolemic currently. Can continue diuresis for now but monitor renal function closely. He had significant sodium consumption the day prior to presentation. We discussed importance of a low- sodium diet. Check daily weights. Strict ins and outs while hospitalized. Recommended repeating echo as noted above. 2. CAD status post LAD PCI: No angina. Continue dual anti-platelet therapy. Continue high-intensity statin therapy. 3. Elevated troponin: He did not present with acute coronary syndrome. No significant ST abnormalities on ECG. Check serial troponin levels. If it becomes significantly elevated, would recommend heparin drip. Ischemia can cause heart failure exacerbation, but heart failure exacerbation and severe hypertension, as noted on presentation, could cause demand ischemia. Monitor serial enzymes. 4. Hypertension: Blood pressure severely elevated initially but has since improved. May have to add other agents in the future. 5. Tobacco abuse: Recommended that he stop smoking. 6. Tick bite: During exam, there was a tip noted on the right side of his back. Nursing staff was notified and tick was removed. He has requested that Lyme titers be ordered. This did not appear to be a deer tick, but he reports several tick bites on his partner, and thus he has concerns that he may have been bitten by a deer tick in the past. This was related to Dr. Verduzco. 7. Cardiomyopathy: Mildly reduced LV systolic function but technically difficult study. Continue carvedilol and lisinopril. He did have CAD, but only severe CAD in 1 vessel in January. Will repeat echo in the future and consider IV echo contrast. 8. Shortness of breath: May be multifactorial. Has a long smoking history and did improve with nebulizer treatment. Further treatment as per primary hospitalist service. 9. Disposition: Cardiology will continue to follow. Patient care discussed with primary hospitalist, Dr. Verduzco. Cardiology will continue to follow. Thank you for allowing me to participate in the care of your patient. Please call for any other questions or concerns. Sincerely, Joni Jean M.D.
[2017-05-09] MEDS: FUROSEMIDE INJ 40 MG in SYRINGE 0 ML IV SCH (16:51)
[2017-05-09] MEDS ORDERED: ATORVASTATIN 40 MG TAB PO SCH (21:00)
[2017-05-09] MEDS: CARVEDILOL 25 MG TAB PO SCH (21:06)
[2017-05-09] MEDS: HEPARIN SOD 5000 UNIT/0.5 ML CARP SQ SCH (21:09)
[2017-05-09 21:18] LABS: LYME DISEASE AB IGG NEG (NEG); LYME DISEASE AB IGM NEG (NEG)
[2017-05-10] VITALS (8 sets, daily range): BP systolic 142–162; BP diastolic 72–86; PULSE 66–81; TEMP 36.6–36.7; O2SAT 92–94
[2017-05-10 06:37] LABS: HEMATOCRIT 39.5 % (42-52); MEAN CORPUSCULAR HEMOGLOBIN 29.5 pg (25-34); MEAN CORPUSCULAR HGB CONC 33.2 g/dl (32-36); MEAN PLATELET VOLUME 10.2 fL (7.4-10.4); PLATELET COUNT 208 K/uL (130-400); RED BLOOD COUNT 4.44 M/uL (4.7-6.1); WHITE BLOOD COUNT 12.63 K/uL (4.8-10.8)
[2017-05-10 07:09] LABS: BUN/CREATININE RATIO 33.2 (10-20); CALCIUM 8.8 mg/dl (8.5-10.1); CREATININE 0.83 mg/dl (0.60-1.40)
[2017-05-10] MEDS: ALBUT/IPRATROP 3MG/0.5MG NEB 3 ML VIAL INH SCH ×2 (07:17→11:15)
[2017-05-10] MEDS: FUROSEMIDE INJ 40 MG in SYRINGE 0 ML IV SCH (08:07)
[2017-05-10] MEDS: CARVEDILOL 25 MG TAB PO SCH (08:07)
[2017-05-10] MEDS: INSULIN ASPART 100 UNITS/ML 3 ML PEN SC SCH ×2 (08:10→11:42)
[2017-05-10] MEDS: HEPARIN SOD 5000 UNIT/0.5 ML CARP SQ SCH (08:11)
[2017-05-10] MEDS ORDERED: POTASSIUM CHLORIDE 20 MEQ TABCR PO STA (08:16)
[2017-05-10] MEDS ORDERED: LISINOPRIL 40 MG TAB PO SCH (09:00)
[2017-05-10] MEDS ORDERED: INSULIN GLARGINE SOLOSTAR 100 UNITS/ML 3 ML PEN SC SCH ×2 (09:00)
[2017-05-10] MEDS ORDERED: CLOPIDOGREL BISULFATE 75 MG TAB PO SCH (09:00)
[2017-05-10] MEDS ORDERED: POTASSIUM CHLORIDE 20 MEQ TABCR PO SCH (09:00)
[2017-05-10] MEDS ORDERED: TAMSULOSIN HCL 0.4 MG CAP PO SCH (09:00)
[2017-05-10] MEDS ORDERED: ASPIRIN 81 MG ECTAB PO SCH (09:00)
[2017-05-10] MEDS ORDERED: FINASTERIDE 5 MG TAB PO SCH (09:00)
[2017-05-10] MEDS ORDERED: NURSING VERBAL MED ORDER ONE (09:15)
--- NOTE | 2017-05-10 10:21 | CARDIOLOGY PROGRESS NOTE ---
DATE: 05/10/2017 TIME: 09:59 a.m. SUBJECTIVE: Mr. Meyer states that his breathing is back to baseline. He denies palpitations, syncope, near syncope, orthopnea, chest pain, or edema. He has not yet ambulated in the hallways. OBJECTIVE: VITAL SIGNS: Temperature 36.7 degrees, heart rate 66 beats per minute, respiratory rate 20, blood pressure 162/74 mmHg and oxygen saturation 94% on 2 liters per nasal cannula. Weight 90.1 kg down from 92 kg. GENERAL: No acute distress. He is alert. NECK: No appreciable JVD. CARDIAC EXAM: No ventricular heave. Regular, normal S1 and S2. No audible murmurs, rubs or gallops. LUNGS: Decreased breath sounds throughout, but otherwise clear. ABDOMEN: Soft, nontender, and nondistended. Normoactive bowel sounds. EXTREMITIES: No cyanosis or edema. PSYCHIATRIC: Affect appears appropriate. MEDICATIONS: Include aspirin 81 mg daily, Plavix 75 mg daily, carvedilol 25 mg p.o. b.i.d., atorvastatin 80 mg at bedtime, Lasix 40 mg IV b.i.d., heparin 5000 units subQ q. 12 hours, lisinopril 40 mg daily, and potassium chloride 40 mEq x2 today. TELEMETRY: Personally reviewed. PVCs and PACs, otherwise sinus rhythm. ECG performed this morning personally reviewed. Sinus rhythm at 81 beats per minute. Possible inferior infarct. LABORATORY DATA: White blood cell count 12.63, hemoglobin 13.1, and platelets 208. Sodium 140, potassium 3, BUN 27 up from 18, and creatinine 0.83. Peak troponin was 0.361. Lyme titers are negative. ASSESSMENT AND PLAN: 1. Acute systolic congestive heart failure: He does have mildly reduced LV systolic function. He appears euvolemic today. BUN suggests azotemia on his labs. We will discontinue IV Lasix and start p.o. Lasix 20 mg daily as well as spironolactone 25 mg daily, which will help with potassium. We discussed the importance once again of low sodium diet, less than 2000 mg daily. Check daily weights. Strict ins and outs while hospitalized. We will arrange for heart failure followup as an outpatient. 2. Coronary artery disease, status post LAD PCI: No angina. He did not rule in for myocardial infarction. Continue dual antiplatelet therapy as well as high intensity statin therapy. 3. Elevated troponins: Likely secondary to demand ischemia in the setting of hypoxia and heart failure exacerbation. His only obstructive coronary artery disease is with his LAD and if his stent acutely thrombosed, we would expect significant wall motion abnormalities on echo and ST elevations. This did not occur and therefore, no further ischemic evaluation recommended at this time. 4. Hypertension: Blood pressure remains elevated. We will start spironolactone and home dose of Lasix as above. 5. Tobacco abuse: Stop smoking. 6. Cardiomyopathy: Mildly reduced LV systolic function. Continue carvedilol and lisinopril. The echo image quality was technically difficult. Therefore, can repeat an echo in the future to further evaluate. 7. Shortness of breath: He is asymptomatic now and back to his baseline. Recommend weaning off of oxygen and ambulate in the hallway to see how he does from a breathing standpoint. If he does well, could be discharged home from a cardiology standpoint. 8. Disposition: Heart failure followup will be arranged. Plan of care discussed with Dr. Padilla of the hospitalist service.
[2017-05-10] MEDS ORDERED: MCRK20 PO (11:04)
[2017-05-10] MEDS ORDERED: LSX20 PO (11:04)
[2017-05-10] MEDS ORDERED: SPR25 PO (11:04)
--- NOTE | 2017-05-10 11:09 | Discharge Instructions ---
Discharge Instructions Date of Service May 10, 2017. Admission Reason for Admission: Acute Diastolic Heart Failure Discharge Discharge Diagnosis / Problem: Acute Diastolic Heart Failure Discharge Goals Goal(s): Decrease discomfort, Improve function, Increase independence Activity Recommendations Activity Limitations: resume your previous activity . Instructions / Follow-Up Instructions / Follow-Up Acute on Chronic Diastolic CHF: - You will be started on two different water pills to help maintain your fluids and prevent this from happening - Please read the information below to see how you can manage this, such as weighing yourself daily and avoiding too much salt in the diet - Continue you previously prescribed medications as we have not made any changes to these Follow-Up: - Please follow-up with cardiology as planned and they will help establish you with the heart failure clinic - Please see your family doctor in next 7-10 days - we will help get you an appointment and one of our counseling case manager will call you. Call your Primary Care doctor if any of the following symptoms or problems start or get worse: * Shortness of breath or difficulty breathing * Wake up at night short of breath * Chest pain * Cough * Swelling of your hands, feet, or legs * More fatigued or tired with your normal activity * Palpitations - sudden fast heart beats WEIGHT * Weigh yourself every morning after using the bathroom. * Use the same scale. * Wear the same amount of clothing. * Write your weight down on a chart. * Call your Primary Care doctor if you gain more than 2-3 pounds in 1-2 days. MEDICATIONS * Use this discharge instruction sheet for medication instructions. * Take your medications at the time your doctor ordered. * Do not skip a dose of your medicines. * If you miss a dose of medicine, take it as soon as possible, but DO NOT DOUBLE A DOSE. * Read your medicine information when you get home. * Know all of the side effects of your medicine. If in doubt, ask your pharmacist * Call your Primary Care doctor's office if you have any side effects. * Be sure all of your doctors know what medicine and herbs you take (including cold, flu, and herbal medicine). Take the following with you to your follow-up doctor appointments: * Weight Chart * Medication List * List of questions Do not drink excessive alcohol, beer or wine. Current Hospital Diet Patient's current hospital diet: AHA Diet (Heart Healthy), Low Sodium Diet (2gm Na), Diabetes Type 2 Diet Discharge Diet Recommended Diet: AHA Diet (Heart Healthy), Low Sodium Diet (2gm Na), Diabetes Type 2 Diet Pending Studies Studies pending at discharge: no Medical Emergencies . Who to Call and When: Call 911 or go to the Emergency Room if: * If at any time you feel your situation is an emergency * You have tightness or pain in your chest that does not go away with rest or Nitroglycerin * You are very short of breath even with rest . Non-Emergent Contact Non-Emergency issues call your: Primary Care Provider Call Non-Emergent contact if: you have a fever, your pain is concerning you, you have any medication questions . . "Provider Documentation" section prepared by Cece Erickson. . VTE Core Measure Inpt VTE Proph given/why not?: Unfractionated heparin SQ, SCD's
[2017-05-10] MEDS ORDERED: POTASSIUM CHLORIDE 20 MEQ TABCR PO ONE (13:00)
--- NOTE | 2017-05-10 16:10 | Discharge Summary ---
Discharge Summary Date of Service May 10, 2017. (Cece Erickson PA-C) Discharge Summary Admission Date: May 09, 2017 at 10:56 Discharge Date: May 10, 2017 Discharge Disposition: Home Principal Diagnosis: Acute on Chronic Diastolic CHF Problems/Secondary Diagnoses: Past Medical/Surgical History 1. CAD S/P NSTEMI and LAD PCI (January 2017) 2. T2DM 3. HTN 4. Paroxysmal Ventricular Tachycardia 5. Paroxysmal Atrial Tachycardia 6. BPH Surgical History: 1. R Inguinal Hernia Immunizations: Have You Had Influenza Vaccine: Unknown History of Tetanus Vaccine?: Unknown History of Pneumococcal: Unknown History of Hepatitis B Vaccine: Unknown Procedures: (CHEST FOR PE) ANGIO WITH FINDINGS: Small bilateral pleural effusions. Mild bibasilar atelectasis. Vasculature enhances appropriately. No significant filling defects are appreciated. Upper lungs are considered clear. Baseline interstitial change is noted throughout both hemithoraces. There is a focus of round atelectasis lingular aspect of the left lung base. IMPRESSION: 1. Study is negative for pulmonary embolus. 2. Bilateral pleural effusions with bibasilar atelectatic and or infiltrative change. ECHOCARDIOGRAM: -- Conclusions -- * 1. Mildly dilated left ventricle with mildly reduced systolic function. EF 45-50%. Mild global hypokinesis. Mild concentric left ventricular hypertrophy. Type 1 diastolic dysfunction. * 2. No significant valvular abnormalities visualized. * 3. Technically difficult study. * 4. Compared to prior study on 01/19/2017, apex no longer appears akinetic. Consultations: 1. Cardiology (Cece Erickson PA-C) Medication Reconciliation New Medications: Potassium Chloride (Klor-Con M20) 20 Meq Tabcr 20 MEQ PO DAILY for 30 Days, #30 TABS Furosemide (Furosemide) 20 Mg Tab 20 MG PO QAM for 30 Days, #30 TAB Spironolactone (Spironolactone) 25 Mg Tab 25 MG PO QAM for 30 Days, #30 TAB Continued Medications: Aspirin (Aspirin Ec) 81 Mg Tab 81 MG PO DAILY Atorvastatin (Lipitor) 40 Mg Tab 80 MG PO HS, TAB Carvedilol (Carvedilol) 25 Mg Tab 25 MG PO BID Clopidogrel (Plavix) 75 Mg Tab 75 MG PO DAILY, TAB Finasteride (Proscar) 5 Mg Tab 5 MG PO DAILY, TAB Lisinopril (Zestril) 40 Mg Tab 40 MG PO DAILY, TAB Metformin Hcl (Glucophage Ext Rel) 1,000 Mg Tab 500 MG PO BID, TAB Nitroglycerin (Nitrostat) 0.4 Mg Tab 0.4 MG UT PRN, BTL Tamsulosin HCl (Tamsulosin HCl) 0.4 Mg Cap 0.4 MG PO DAILY Discharge Exam Review of Systems: Constitutional: No fever, No chills ENT: No nasal symptoms, No sore throat, No trouble swallowing Respiratory: No cough, No wheezing, No dyspnea on exertion, No dyspnea at rest Cardiovascular: No chest pain, No palpitations Abdomen: No pain, No nausea, No vomiting, No diarrhea, No constipation Musculoskeletal: No swelling, No calf pain Genitourinary - Male: No dysuria Hematologic / Lymphatic: No abnormal bleeding/bruising Integumentary: No rash Physical Exam: General Appearance: WD/WN, no apparent distress Eyes: sclerae normal ENT: hearing grossly normal Neck: supple, no JVD, trachea midline Respiratory/Chest: lungs clear, normal breath sounds, no respiratory distress, no accessory muscle use Cardiovascular: regular rate, rhythm, no gallop, no murmur Abdomen / GI: normal bowel sounds, non tender, soft Extremities: no calf tenderness, no pedal edema Neurologic/Psychiatric: alert, oriented x 3 Skin: normal color, warm/dry (Cece Erickson, PAQuinnC) Hospital Course ADMISSION: Mr. Meyer is a 67 y/o male with PMHx of T2DM, CAD S/P [place] and LAD PCI (January 2017), Paroxysmal Ventricular Tachycardia, Paroxysmal Atrial Tachycardia, HTN, and BPH who presents to the ED c/o sudden onset of FRIEDMAN this AM. He reports since his [place] in January that he would have minimal FRIEDMAN but could perform ADLs and denies limitations in function due to it. Prior to today he reports feeling at his baseline. He consumed a hotdog and "salty" pizza last night. He does not report extremity edema but feels that his abdomen may be more bloated than his normal. He reports significant SOB that is worse with exertion and called EMS. States he woke up this way but didn't seek help initially. On their arrival he was sating at approx. 50% and responding with supplemental O2. He denies orthopnea stating he normally sleeps with 2 pillows and has not needed to adjust this. He also denies paroxysmal nocturnal dyspnea. He does report intermittent smoking of 2-3 cigars every few days. He denies previous diagnosis of pulmonary disease. 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 He reports associated diaphoresis but denies fever/chills, cough, CP, N/V, abdominal pain, dysuria, constipation/diarrhea. HOSPITAL COURSE: Mr. Meyer was admitted for acute on chronic diastolic CHF. This was a rapid onset resulting in significant hypoxia but quickly responded with supplemental O2 and diuresis. Records reveal a negative balance of -800 mLs however family dumbed urinals in ED x 3 bottles and diuresed more than records reflect. He reports baseline respiratory status and is ambulating without FRIEDMAN or need for O2. Cardiac enzymes were slightly elevated and trending down and likely reflect demand mismatch. Repeat echo was unchanged from previous in January 2017. Cardiology was consulted and recommendations for Lasix 20 mg daily and Spironolactone 25 mg daily advised. He will be referred to the heart failure clinic. Written instructions given for weight monitoring and low sodium diet. Patient is optimal for discharge with outpatient follow-up. Total Time Spent: Greater than 30 minutes This includes examination of the patient, discharge planning, medication reconciliation, and communication with other providers. (Cece Erickson, PA-C) i personally examined pt and verified all jaimes points w Guzman Erickson PAC feeling better breathing well walking the halls no problems no distress d/w cardiology input appreciated follow up to be streamlined vitals noted nad breathing unlabored acute CHF - improved. stable for home. CHF clinic, [facility] as above (Barak Padilla D.O.) Discharge Instructions Please refer to the electronic Patient Visit Report (Discharge Instructions) for additional information. (Cece Erickson, PA-C) Additional Copies To Jr Bergeron M.D.
[2017-05-11] MEDS ORDERED: POTASSIUM CHLORIDE 20 MEQ TABCR PO SCH (09:00)
[2017-05-11] MEDS ORDERED: FUROSEMIDE 20 MG TAB PO SCH (09:00)
[2017-05-11] MEDS ORDERED: SPIRONOLACTONE 25 MG TAB PO SCH (09:00)
[2017-05-13 19:32] LABS: ANAPLASMA PHAGOCYTOPHIL IGG <1:64 (<1:64); ANAPLASMA PHAGOCYTOPHIL IGM <1:20 (<1:20); EHRLICHIA CHAFF IGG AB <1:64 (<1:64); EHRLICHIA CHAFF IGM AB <1:20 (<1:20)
== END 2017-05-10 14:34 | disposition home or self-care (01) | DRG 291 ==
LOC: EDBD 08:09 → C.EDB 08:10 → C.2T 10:56 → ENRESERV 11:04
PROVIDERS: ADMIT Family Medicine; ATTEND Family Medicine
DX: I50.33 Acute on chronic diastolic (congestive) heart failure (principal); J96.01 Acute respiratory failure with hypoxia; I24.9 Acute ischemic heart disease, unspecified; J44.1 Chronic obstructive pulmonary disease with (acute) exacerbation; I42.9 Cardiomyopathy, unspecified; S30.860A Insect bite (nonvenomous) of lower back and pelvis, initial encounter; J81.0 Acute pulmonary edema; N40.0 Benign prostatic hyperplasia without lower urinary tract symptoms; E11.9 Type 2 diabetes mellitus without complications; I10 Essential (primary) hypertension; F17.200 Nicotine dependence, unspecified, uncomplicated; Z79.82 Long term (current) use of aspirin; W57.XXXA Bitten or stung by nonvenomous insect and other nonvenomous arthropods, initial encounter

== ENCOUNTER → 2017-06-02 | Outpatient (CLI) | payer OTHER ==
[~2017-06-02] MED LIST changes: -ALFU10TA2 PO; -ASPCH81 PO; +ASPI81TA28 PO; +ATOR-24 PO; +CLOP1TAB15 PO; +CRG25 PO; -CRG625 PO; -DUTA0.5C PO; +FINA5TAB PO; +FLM4 PO; -LPT40 PO; +LSX20 PO; +MCRK20 PO; -METF-841 PO; +METF1TAB53 PO; +NTRGSL/4 UT; -PLV75 PO; +SPR25 PO
[2017-06-02 17:46] LABS: BLOOD UREA NITROGEN 20 mg/dl (7-18); BUN/CREATININE RATIO 21.2 (10-20); CALCIUM 9.3 mg/dl (8.5-10.1); CARBON DIOXIDE 29 mmol/L (21-32); CHLORIDE 99 mmol/L (98-107); CREATININE 0.94 mg/dl (0.60-1.40); GLUCOSE 260 mg/dl (70-99); POTASSIUM 4.5 mmol/L (3.5-5.1); SODIUM 135 mmol/L (136-145)
== END | disposition home or self-care (01) ==
LOC: C.LABPVFM 11:49
PROVIDERS: ATTEND Physician Assistant
DX: I50.31 Acute diastolic (congestive) heart failure (principal)

== ENCOUNTER → 2017-11-24 | Outpatient (CLI) | payer OTHER ==
[2017-11-24 14:02] LABS: HEMATOCRIT 40.5 % (42-52); HEMOGLOBIN 13.9 g/dL (14.0-18.0); MEAN CELL VOLUME 88.8 fL (80-100); MEAN CORPUSCULAR HEMOGLOBIN 30.5 pg (25-34); MEAN CORPUSCULAR HGB CONC 34.3 g/dl (32-36); MEAN PLATELET VOLUME 10.6 fL (7.4-10.4); PLATELET COUNT 261 K/uL (130-400); RED CELL DISTRIBUTION WIDTH CV 12.6 % (11.5-14.5); RED CELL DISTRIBUTION WIDTH SD 40.9 fL (36.4-46.3); WHITE BLOOD COUNT 8.52 K/uL (4.8-10.8)
[2017-11-24 14:42] LABS: ALBUMIN 3.8 gm/dl (3.4-5.0); ALT/SGPT 35 U/L (12-78); AST/SGOT 14 U/L (15-37); BLOOD UREA NITROGEN 23 mg/dl (7-18); CALCIUM 9.1 mg/dl (8.5-10.1); CARBON DIOXIDE 28 mmol/L (21-32); CREATININE 0.96 mg/dl (0.60-1.40); GLUCOSE 333 mg/dl (70-99); POTASSIUM 4.4 mmol/L (3.5-5.1); SODIUM 133 mmol/L (136-145)
[2017-11-24 14:44] LABS: CHOLESTEROL 143 mg/dl (0-200); TOTAL PROTEIN 7.4 gm/dl (6.4-8.2)
[2017-11-24 14:51] LABS: ALKALINE PHOSPHATASE 88 U/L (45-117); LDL CHOLESTEROL CALCULATED 62 mg/dl
== END | disposition home or self-care (01) ==
LOC: C.LABPVFM 09:46
PROVIDERS: ATTEND Family Medicine
DX: I50.31 Acute diastolic (congestive) heart failure (principal); E11.9 Type 2 diabetes mellitus without complications

== ENCOUNTER → 2018-03-04 | Outpatient (CLI) | payer OTHER ==
[~2018-03-04] MED LIST changes: +SPIR25TA6 PO; -SPR25 PO
[2018-03-04 13:27] LABS: HEMOGLOBIN A1C 9.2 % (4.5-5.6)
[2018-03-04 14:44] LABS: ALBUMIN 3.9 gm/dl (3.4-5.0); ALKALINE PHOSPHATASE 71 U/L (45-117); ALT/SGPT 22 U/L (12-78); AST/SGOT 11 U/L (15-37); BLOOD UREA NITROGEN 24 mg/dl (7-18); CALCIUM 9.4 mg/dl (8.5-10.1); CARBON DIOXIDE 28 mmol/L (21-32); CHOLESTEROL 207 mg/dl (0-200); CREATININE 0.93 mg/dl (0.60-1.40); GLUCOSE 209 mg/dl (70-99); LDL CHOLESTEROL CALCULATED 125 mg/dl; POTASSIUM 4.6 mmol/L (3.5-5.1); SODIUM 135 mmol/L (136-145); TOTAL PROTEIN 7.3 gm/dl (6.4-8.2)
== END | disposition home or self-care (01) ==
LOC: C.LABPVFM 08:38
PROVIDERS: ATTEND Family Medicine
DX: Z00.00 Encounter for general adult medical examination without abnormal findings (principal); N40.0 Benign prostatic hyperplasia without lower urinary tract symptoms; E11.9 Type 2 diabetes mellitus without complications; I25.10 Atherosclerotic heart disease of native coronary artery without angina pectoris; R94.5 Abnormal results of liver function studies; R16.0 Hepatomegaly, not elsewhere classified

== ENCOUNTER 2019-05-30 07:46 | Observation (INO) ==
[2019-05-30] MEDS ORDERED: LIDOCAINE HCL 1% 20 ML VIAL ONE (08:16)
[2019-05-30] MEDS ORDERED: BACITRACIN INJ 50,000 UNIT VIAL ONE (08:16)
[2019-05-30] MEDS ORDERED: BACITRACIN OINT 0.9 GM PKT ONE (08:16)
[2019-05-30] MEDS ORDERED: fentaNYL citrate 100 MCG/2 ML VIAL ONE (08:19)
[2019-05-30] MEDS ORDERED: MIDAZOLAM HCL 5 MG/ML 1 ML VIAL ONE (08:19)
[2019-05-30] MEDS ORDERED: CEFAZOLIN 250 MG/ML 1 GM VIAL ONE (08:19)
--- NOTE | 2019-05-30 08:41 | History & Physical Bridge Note ---
Date of Service May 30, 2019 History & Physical Bridge Note I have examined the patient, reviewed the History & Physical and in the interval since the performance of the History & Physical I have noted the following changes of clinical significance: no changes noted. I reviewed the indications, procedure, risks and alternatives of ICD implantation with him, his brother and [id number] and they understand and he agrees to proceed. Consent obtained.
--- NOTE | 2019-05-30 08:42 | Pre Anesthesia Assessment ---
Date of Service May 30, 2019 Pre Sedation Assessment Vital Signs Temp Pulse Resp BP Pulse Ox 05/30/19 08:01 36.7 C 87 16 132/97 99 Cardiovascular RRR, no murmur, no edema Respiratory normal respiratory effort, lungs clear to auscultation Pre-Sedation Airway Assessment Smoking Status: Current every day smoker Hx Sleep Apnea: No Short, Thick Neck: No Thyromental Distance: > or= 3.5 Finger Breadths Oral Cavity: + Chipped Teeth Mallampati Class: III ASA: ASA3 NPO Status Date of Last Intake of Fluids: 05/29/19 Time of Last Intake of Fluids: 19:00 Date of Last Intake of Solid Food: 05/29/19 Time of Last Intake of Solid Foods: 19:00 Procedure Planning Contraindications for Sedation: none Current Medications Reviewed: Yes Notes The planned sedation has been discussed with the patient. Informed Consent was obtained. I have identified the patient, determined the appropriateness of sedation and have assessed the patient immediately prior to the procedure. All medicine(s) and interventions are by my order.
--- NOTE | 2019-05-30 10:17 | Operative Report ---
PG Post Operative Report Pre & Post Diagnosis Operation Date: 05/30/19 09:00 Preoperative diagnosis: Cardiomyopathy Postoperative diagnosis: Same I identified the patient and participated in the time-out.: Yes Procedure Operation Date: 05/30/19 09:00 Actual Procedures p ICD Insertion Single - Bony Block MD Surgeon Bony Block MD Real Estate Subagent None Estimated Blood Loss 30 Findings See Below Good lead position, excellent measurements Specimens None Anesthesia Type Local Complications none Disposition Accompanied Patient To Recovery: Yes Disposition: Recovery Room Description of Procedure After obtaining informed consent for the procedure, the patient was brought to the laboratory and prepped and draped in the standard sterile manner. The left prepectoral region was anesthetized with 1% lidocaine local anesthetic and left axillary venipuncture was performed by percutaneous technique and a guidewire placed through the left subclavian vein into the superior vena cava. The area was further infiltrated with 1% lidocaine local anesthetic and a 7 cm incision was made parallel to the left clavicle and 2 cm below it and carried down to the anterior pectoralis fascia. An ICD pocket was formed by blunt dissection anterior to the pectoralis fascia and a bacitracin-soaked sponge (50,000 units in 50 cc normal saline solution) was placed in the pocket. A 10.5 [employer] Med[employer]onic lead introducer was placed over the guidewire into the left subclavian vein, the dilator and guidewire were removed and a bipolar dual coil active fixation steroid tipped ventricular ICD lead was advanced through the introducer into the superior vena cava. A guidewire was placed through the introducer and the introducer was stripped from the lead and guidewire. Using a curved stylette the ventricular lead was advanced through the right ventricular outflow tract into the pulmonary artery and then using a straight stylette was positioned in the right ventricular apex. The screw was extended fixing the lead in position. Pacing and sensing thresholds were evaluated in bipolar configuration and are recorded on the implant data sheet. Once the lead was in position it was attached to the anterior pectoralis fascia using 2 sutures of 2-0 silk around the lead collar. The bacitracin-soaked sponge was removed from the pocket, hemostasis was obtained, the ICD was attached to the lead and placed in the pocket with the lead coiled beneath it. The incision was closed with a running double subcutaneous closure of 3-0 Vicryl absorbable suture, followed by running subcuticular skin closure of 4-0 Vicryl absorbable s uture. Bacitracin ointment was placed on the incision and a pressure dressing applied. I attest to the content of the Intraoperative Record and any orders documented therein. Any exceptions are noted below.
[2019-05-30] MEDS ORDERED: ACETAMINOPHEN 325 MG TAB PO PRN (10:18)
[2019-05-30] MEDS ORDERED: NITROGLYCERIN SL 0.4 MG/TAB TAB SL PRN (10:19)
--- NOTE | 2019-05-30 11:12 | Post Anesthesia Assessment ---
Date of Service May 30, 2019 Post Sedation Assessment Vital Signs Temp Pulse Resp BP Pulse Ox 05/30/19 10:50 36.4 C L 69 16 130/73 93 05/30/19 10:39 69 16 121/79 95 05/30/19 10:25 65 16 127/77 94 05/30/19 08:01 36.7 C 87 16 132/97 99 Recovery Score Activity: Moves 4 extremities Respiration: Deep Breath/Cough Circulation: +/-20% PreAnes Value Consciousness: Fully Awake Oxygen Saturation: > 92% On Room Air Post Anesthesia Score: 10 Discharge Sedation Level of Care: Fast Track Phase II Post Sedation Plan On clinical assessment, the patient appears to have tolerated the sedation without complications. Patient is recovering as anticipated. Patient will continue to be monitored by nursing and may be discharged when sedation discharge criteria are met per below protocol. Upon Completions of procedure up to 15 minutes continue every 5 minute vital signs and the P.A.R. score; then discharge to a Phase I or Fast Track to Phase II per the following guidelines: * Discharge Patient to appropriate Phase II area if PAR is 8 or greater or return to pre- procedure baseline. The post - procedure orders will be as directed. * If PAR score is less than 8 or not return to pre-procedure baseline then patient will follow Phase I monitoring till PAR is reached for Phase II. The Phase I may be done in procedure room or may call to secure a Phase I area. * If naloxone or flumazenil are used for reversal, hold in Phase I for continued monitoring from when last reversal dose was given for a minimum of 60 minutes or longer pending the nurse and/or physician discretion of patient condition before discharge to Phase II. Please call the Sedation Physician to re-evaluate and complete post-note for discharge to Phase II area. Do NOT discharge from procedure sedation or Phase 1 until post- sedation evaluation note is complete by procedure /sedation MD Sedation Discharge Instructions to be given to the patient at discharge to home.
[2019-05-30] MEDS ORDERED: DEXTROSE 50% 50 ML SYRINGE IV PRN (11:15)
[2019-05-30] MEDS ORDERED: CARBOHYDRATES FOR HYPOGLYCEMIA PO PRN (11:15)
[2019-05-30] MEDS ORDERED: GLUCOSE 40% GEL 15 GM TUBE PO PRN (11:15)
[2019-05-30] MEDS ORDERED: GLUCAGON FOR INJ 1 MG VIAL IM PRN (11:15)
[2019-05-30] MEDS ORDERED: GLUCOSE 10 TABS/TUBE PO PRN (11:15)
[2019-05-30] MEDS: CLOPIDOGREL BISULFATE 75 MG TAB PO SCH (11:38)
[2019-05-30] MEDS: TAMSULOSIN HCL 0.4 MG CAP PO SCH (11:38)
[2019-05-30] MEDS: METFORMIN HCL ER 500 MG TABCR PO SCH ×2 (13:31→20:18)
[2019-05-30] MEDS: FINASTERIDE 5 MG TAB PO SCH (13:31)
[2019-05-30] MEDS: KETOROLAC TROMETHAMINE 10 MG TABLET PO PRN (20:17)
[2019-05-30] MEDS: carvediloL 25 MG TAB PO SCH (20:18)
[2019-05-30] MEDS: SACUBITRIL-VALSARTAN 49/51 MG TAB PO SCH (20:18)
[2019-05-30] MEDS ORDERED: INSULIN GLARGINE SOLOSTAR 100 UNITS/ML 3 ML PEN SQ SCH (21:00)
--- NOTE | 2019-05-31 08:01 | XRay Report ---
XR chest 2V PA/lateral HISTORY: 69 years-old Male EXACT TIME ORDERED Evaluate for pneumothorax and l status post placement of a left subclavian pacer COMPARISON: Chest radiograph 05/09/2017 TECHNIQUE: PA and lateral views of the chest FINDINGS: Cardiac silhouette is mildly enlarged, unchanged. No overt pulmonary edema. Trace pleural effusions w ith mild bibasilar opacities suggestive of probable atelectasis. A single lead left subclavian pacer/ AICD has been placed with distal tip overlying the expected location of the right ventricle. There is no postprocedural pneumothorax identified. Degenerative changes of the shoulders and spine. IMPRESSION: 1. Status post placement of a left subclavian pacer/AICD. No postprocedural pneumothorax identified. 2. Cardiomegaly without overt pulmonary edema. 3. Trace pleural effusions. The above report was generated using voice recognition software. It may contain grammatical, syntax o r spelling errors. Electronically signed by: Sixto Ambrosio M.D. 05/31/2019 8:00 AM
[2019-05-31] MEDS: KETOROLAC TROMETHAMINE 10 MG TABLET PO PRN (08:28)
[2019-05-31] MEDS: FINASTERIDE 5 MG TAB PO SCH (08:29)
[2019-05-31] MEDS: SACUBITRIL-VALSARTAN 49/51 MG TAB PO SCH (08:29)
[2019-05-31] MEDS: CLOPIDOGREL BISULFATE 75 MG TAB PO SCH (08:30)
[2019-05-31] MEDS: TAMSULOSIN HCL 0.4 MG CAP PO SCH (08:30)
[2019-05-31] MEDS: METFORMIN HCL ER 500 MG TABCR PO SCH (08:30)
[2019-05-31] MEDS: carvediloL 25 MG TAB PO SCH (08:31)
[2019-05-31] MEDS ORDERED: SPIRONOLACTONE 25 MG TAB PO SCH (09:00)
[2019-05-31] MEDS ORDERED: CEROVITE ADV FORMULA TAB PO SCH (09:00)
[2019-05-31] MEDS ORDERED: FUROSEMIDE 40 MG TAB PO SCH (09:00)
[2019-05-31] MEDS ORDERED: ATORVASTATIN 40 MG TAB PO SCH (09:00)
[2019-05-31] MEDS ORDERED: ASPIRIN 81 MG ECTAB PO SCH (09:00)
== END 2019-05-31 10:47 | disposition home or self-care (01) ==
LOC: 2S 07:46 → EP 07:46
PROC: EPB.ICD (2019-05-30 09:00)